=== PATIENT | male | born 1930 | race Caucasian/White ===

== ENCOUNTER 2019-02-08 12:51 | Observation (INO) | payer MEDICARE, OTHER ==
[2019-02-07 10:40] LABS: BASOPHILS # (AUTO) 0.1 X10'3 (0-0.2); BASOPHILS % (AUTO) 0.8 % (0-1); EOSINOPHILS # (AUTO) 0.2 X10'3 (0-0.9); HEMATOCRIT 37.2 % (42.0-52.0); HEMOGLOBIN 12.3 g/dl (14.0-17.9); LYMPHOCYTES # (AUTO) 1.1 X10'3 (1.1-4.8); LYMPHOCYTES % (AUTO) 18.6 % (21-51); MEAN CORPUSCULAR HEMOGLOBIN 31.8 PG (27.0-31.0); MEAN CORPUSCULAR HGB CONC 33.1 g/dL (33.0-36.5); MEAN CORPUSCULAR VOLUME 96.1 FL (78-98); MEAN PLATELET VOLUME 8.7 FL (7.4-10.4); MONOCYTES # (AUTO) 0.6 X10'3 (0-0.9); NEUTROPHILS # (AUTO) 4.1 X10'3 (1.8-7.7); NEUTROPHILS % (AUTO) 67.6 % (42-75); PLATELET COUNT 195 X10'3 (140-440); RED BLOOD COUNT 3.87 X10'6 (4.70-6.10); RED CELL DISTRIBUTION WIDTH 13.3 % (11.5-14.5); WHITE BLOOD COUNT 6.1 X10'3 (4.5-11.0)
[2019-02-07 10:51] LABS: PARTIAL THROMBOPLASTIN TIME 25 SECONDS (22-32); PROTHROMBIN TIME 10.4 SECONDS (9.0-12.0)
[2019-02-07 11:02] LABS: ALBUMIN 2.8 G/DL (3.4-5.0); ANION GAP 7 (8-16); BLOOD UREA NITROGEN 40 MG/DL (7-18); BUN/CREATININE RATIO 16.7 (5.4-32.0); CALCIUM 8.2 MG/DL (8.5-10.1); CHLORIDE 110 MMOL/L (99-107); GLUCOSE 107 MG/DL (70-104); POTASSIUM 4.1 MMOL/L (3.5-5.1); SODIUM 143 MMOL/L (135-145); TOTAL CARBON DIOXIDE 26.3 MMOL/L (24-32); eGFR 26 ML/MIN
[2019-02-08] VITALS (10 sets, daily range): BP systolic 103–144; BP diastolic 25–66
[~2019-02-08] VITALS: Ht 177.8 cm; Wt 83.5 kg
[2019-02-08] MEDS ORDERED: cefazolin/dext.iso 2gm/100ml 100 ML IV ONE (13:25)
[2019-02-08] MEDS ORDERED: ASPI-1265 PO (14:18)
[2019-02-08] MEDS ORDERED: ACET600C PO (14:18)
[2019-02-08] MEDS ORDERED: AMIO200T40 PO (14:18)
[2019-02-08] MEDS ORDERED: FURO40TA4 PO (14:18)
[2019-02-08] MEDS ORDERED: FURO-150 PO (14:18)
[2019-02-08] MEDS ORDERED: KRIL500C PO (14:18)
[2019-02-08] MEDS ORDERED: SACU1TAB PO (14:18)
[2019-02-08] MEDS ORDERED: CHOL100046 PO (14:18)
[2019-02-08] MEDS ORDERED: ROSU10TA2 PO (14:18)
[2019-02-08] MEDS ORDERED: lidocaine 1%/epinephrine 1:100,000 injection 50ml vial ONE (14:40)
[2019-02-08] MEDS ORDERED: midazolam 2 mg/2 ml injection ONE ×2 (14:40→17:22)
[2019-02-08] MEDS ORDERED: fentaNYL/PF 50MCG/1 ML 2ML syringe ONE ×2 (14:40→17:40)
[2019-02-08] MEDS ORDERED: iohexol 350MG/ML 100ml bottle IV ONE ×2 (14:41→16:57)
[2019-02-08] MEDS ORDERED: ceFAZolin 2gm in dextrose, iso 100 ML IV ONE (14:45)
[2019-02-08] MEDS ORDERED: sod bicarbonate 150mEq in D5W 1,150 ML IV ONE (14:50)
[2019-02-08] MEDS ORDERED: cefazolin/dext.iso 2gm/50ml 50 ML IV ONE (18:03)
--- NOTE | 2019-02-08 18:45 | NUR ---
Received report from CHIRAG Jhaveri from the research laboratory specialist. Patient arrived onto the floor at approx. 1900 hrs. Patient is alert and oriented and in stable condition. Will complete post operative vitals and continue to monitor for the duration of shift.
[2019-02-08] MEDS ORDERED: ondansetron/PF 4mg/2ml inj ONE (18:56)
[2019-02-08] MEDS ORDERED: vitamin D (cholecalciferol) 1,000 unit tablet PO SCH (19:50)
[2019-02-08] MEDS ORDERED: magnesium hydroxide 30ml (MOM) UD suspension PO PRN (19:50)
[2019-02-08] MEDS ORDERED: HYDROcodone/acetaminophen 10/325mg tab PO PRN (19:50)
[2019-02-08] MEDS ORDERED: ondansetron/PF 4mg/2ml inj IV PRN (19:50)
[2019-02-08] MEDS ORDERED: HYDROcodone/acetaminophen 5mg/325mg tablet PO PRN (19:50)
[2019-02-08] MEDS ORDERED: mag hydrox/Alum hydrox/simeth 30ml oral suspension PO PRN (19:50)
[2019-02-08] MEDS ORDERED: acetaminophen 325mg tablet PO PRN (19:50)
[2019-02-08] MEDS ORDERED: atorvastatin 20mg tablet PO SCH (21:00)
[2019-02-08] MEDS: aspirin 81mg tab.chew PO SCH (21:25)
[2019-02-08] MEDS: acetylcysteine 200 MG/ml 4ml vial PO SCH (22:16)
[2019-02-08] MEDS: normal saline 1000ml 1,000 ML IV SCH (22:21)
--- NOTE | 2019-02-09 00:30 | NUR ---
Accompanied patient along with tech to ED depart for Chest X-ray. Patient was stable and remained stable throughout the test and was brought back to his room. He was put back into bed with no problems. Will continue to monitor patient for duration of this shift.
--- NOTE | 2019-02-09 00:30 | NUR ---
Radiology- Patient Tony Peters in room 9266A is ready for his ordered 2-view chest x-ray, please call me in PCU when it is OK to bring the patient down. Thank you. CHIRAG Peterson [id number]
[2019-02-09 02:00] VITALS: BP 117/52
[2019-02-09 05:57] LABS: BASOPHILS % (AUTO) 0.4 % (0-1); EOSINOPHILS # (AUTO) 0.2 X10'3 (0-0.9); EOSINOPHILS % (AUTO) 2.8 % (0-6); HEMATOCRIT 31.6 % (42.0-52.0); LYMPHOCYTES # (AUTO) 1.4 X10'3 (1.1-4.8); LYMPHOCYTES % (AUTO) 16.7 % (21-51); MEAN CORPUSCULAR HEMOGLOBIN 32.7 PG (27.0-31.0); MEAN CORPUSCULAR HGB CONC 34.8 g/dL (33.0-36.5); MEAN CORPUSCULAR VOLUME 93.9 FL (78-98); MEAN PLATELET VOLUME 8.7 FL (7.4-10.4); MONOCYTES % (AUTO) 12.1 % (2-12); NEUTROPHILS # (AUTO) 5.8 X10'3 (1.8-7.7); PLATELET COUNT 176 X10'3 (140-440); RED BLOOD COUNT 3.37 X10'6 (4.70-6.10); RED CELL DISTRIBUTION WIDTH 13.6 % (11.5-14.5); WHITE BLOOD COUNT 8.5 X10'3 (4.5-11.0)
[2019-02-09 06:00] VITALS: BP 120/64
[2019-02-09 06:02] LABS: ALBUMIN 2.4 G/DL (3.4-5.0); ANION GAP 5 (8-16); BLOOD UREA NITROGEN 34 MG/DL (7-18); BUN/CREATININE RATIO 16.8 (5.4-32.0); CHLORIDE 108 MMOL/L (99-107); CREATININE 2.02 MG/DL (0.60-1.10); GLUCOSE 94 MG/DL (70-104); POTASSIUM 4.3 MMOL/L (3.5-5.1); SODIUM 143 MMOL/L (135-145); TOTAL CARBON DIOXIDE 30.2 MMOL/L (24-32); eGFR 31 ML/MIN
--- NOTE | 2019-02-09 06:11 | NUR ---
Problems reprioritized. Patient report given, questions answered & plan of care reviewed with CHIRAG Veloz.
[2019-02-09] MEDS ORDERED: CEPH-572 PO (07:08)
[2019-02-09] MEDS: aspirin 81mg tab.chew PO SCH (07:25)
[2019-02-09] MEDS: acetylcysteine 200 MG/ml 4ml vial PO SCH (07:26)
[2019-02-09] MEDS ORDERED: sacubitril/valsartan 24mg-26mg tablet PO SCH (08:00)
[2019-02-09] MEDS ORDERED: amiodarone 200mg tablet PO SCH (08:00)
[2019-02-09] MEDS ORDERED: cephalexin 500mg capsule PO SCH (08:00)
[2019-02-09] MEDS ORDERED: furosemide 40mg tablet PO SCH (08:00)
[2019-02-09] MEDS: normal saline 1000ml 1,000 ML IV SCH (10:45)
--- NOTE | 2019-02-09 10:48 | NUR ---
PROVIDED PATIENT WITH DISCHARGE INSTRUCTIONS WELL NEW PRESCRIPTION INFORMATION. PATIENT AWARE THAT HE IS RECOMMENDED TO FOLLOW UP WITH DR. CERVANTES IN 1 WEEK, AND TO LEAVE LEFT SHOULDER DRESSING ON CLEAN DRY AND INTACT UNTIL THE FOLLOW UP APPOINTMENT. PATIENT ALSO EDUCATED ON IMPORTANCE OF MAINTAINING IMMOBILIZATION TO LEFT ARM UNTIL FOLLOW UP APPOINTMENT. PATIENT SAYS HE UNDERSTANDS AND WILL WEAR HIS SLING. IV REMOVED, CATHETER INTACT, MINIMAL BLEEDING WITH CLEAN GAUZE APPLIED AND SECURED WITH TAPE. TELE MONITOR REMOVED AND RETURNED TO [employer]. PATIENT DENIED ANY FURTHER QUESTIONS OR CONCERNS. PATIENT WILL GO HOME WITH FRIEND VIA PRIVATE VEHICLE ONCE HIS MEDICATION IS DELIVERED.
[2019-02-10] MEDS ORDERED: furosemide 20MG tablet PO SCH (08:00)
== END 2019-02-09 12:12 | disposition home or self-care (01) ==
LOC: SSTAY O 12:51 → PCU 3S 19:23 → SSTAY O 20:02 → PCU 3S 22:02
PROVIDERS: ADMIT Internal Medicine Cardiovascular Disease; ATTEND Internal Medicine Cardiovascular Disease
DX: I50.22 Chronic systolic (congestive) heart failure (principal); I25.10 Atherosclerotic heart disease of native coronary artery without angina pectoris; E11.9 Type 2 diabetes mellitus without complications; E78.5 Hyperlipidemia, unspecified; I42.0 Dilated cardiomyopathy; I11.0 Hypertensive heart disease with heart failure; Z95.810 Presence of automatic (implantable) cardiac defibrillator
CPT/HCPCS: 33225; 33249; 36415; 71046; 80048; 83880; 85025; 85610; 85730; 87070; 93005; 96365; 96366; A6449; C1882; C1887; C1895; C1900; G0378; J0690; J2250; J2405; J3010; J3490; J7030; Q9967; 99152; 99153; A4565; A4620; C1769; C1894

== ENCOUNTER 2019-02-20 12:23 | Emergency (ER) | payer MEDICARE, OTHER ==
[~2019-02-20] VITALS: Ht 177.8 cm; Wt 96.0 kg
[~2019-02-20 12:23] MED LIST: ACET600C PO; AMIO200T40 PO; ASPI-1265 PO; CHOL100046 PO; FURO-150 PO; FURO40TA4 PO; KRIL500C PO; ROSU10TA2 PO; SACU1TAB PO
[2019-02-20] MEDS ORDERED: ondansetron/PF 4mg/2ml inj IV ONE (12:45)
[2019-02-20] MEDS ORDERED: morphine 4 MG/ML inj SYRINge IV ONE (12:45)
[2019-02-20 13:04] LABS: BASOPHILS % (AUTO) 0.2 % (0-1); EOSINOPHILS % (AUTO) 0 % (0-6); HEMATOCRIT 32.7 % (42.0-52.0); HEMOGLOBIN 11.2 g/dl (14.0-17.9); LYMPHOCYTES # (AUTO) 0.2 X10'3 (1.1-4.8); LYMPHOCYTES % (AUTO) 1.1 % (21-51); MEAN CORPUSCULAR HGB CONC 34.2 g/dL (33.0-36.5); MEAN CORPUSCULAR VOLUME 93.6 FL (78-98); MEAN PLATELET VOLUME 8.2 FL (7.4-10.4); MONOCYTES # (AUTO) 1.2 X10'3 (0-0.9); MONOCYTES % (AUTO) 6.9 % (2-12); NEUTROPHILS # (AUTO) 15.7 X10'3 (1.8-7.7); NEUTROPHILS % (AUTO) 91.8 % (42-75); PLATELET COUNT 141 X10'3 (140-440); RED BLOOD COUNT 3.49 X10'6 (4.70-6.10); RED CELL DISTRIBUTION WIDTH 13.5 % (11.5-14.5); WHITE BLOOD COUNT 17.1 X10'3 (4.5-11.0)
[2019-02-20 13:20] LABS: ALANINE AMINOTRANSFERASE 18 U/L (12-78); ALBUMIN 2.7 G/DL (3.4-5.0); ALBUMIN/GLOBULIN RATIO 0.9 (1.1-1.5); ALKALINE PHOSPHATASE 55 IU/L (46-116); ANION GAP 8 (8-16); ASPARTATE AMINO TRANSFERASE 17 U/L (10-37); BILIRUBIN,TOTAL 0.6 MG/DL (0.1-1.0); BLOOD UREA NITROGEN 29 MG/DL (7-18); BUN/CREATININE RATIO 12.8 (5.4-32.0); CALCIUM 8.1 MG/DL (8.5-10.1); CHLORIDE 106 MMOL/L (99-107); CREATININE 2.26 MG/DL (0.60-1.10); GLUCOSE 144 MG/DL (70-104); POTASSIUM 4.2 MMOL/L (3.5-5.1); SODIUM 141 MMOL/L (135-145); TOTAL CARBON DIOXIDE 26.8 MMOL/L (24-32); TOTAL PROTEIN 5.6 G/DL (6.4-8.2); eGFR 28 ML/MIN
[2019-02-20 13:28] LABS: MAGNESIUM 1.9 MG/DL (1.5-2.4)
[2019-02-20 13:31] LABS: TOTAL CELLS COUNTED 100
[2019-02-20 13:32] LABS: PLATELET ESTIMATE NORMAL
[2019-02-20 13:43] VITALS: BP 106/45
[2019-02-20 14:58] LABS: INR 1.1 INR; PARTIAL THROMBOPLASTIN TIME 25 SECONDS (22-32); PROTHROMBIN TIME 10.7 SECONDS (9.0-12.0)
== END 2019-02-20 15:41 | disposition home or self-care (01) ==
LOC: ER 12:23
DX: S30.1XXA Contusion of abdominal wall, initial encounter (principal); S20.212A Contusion of left front wall of thorax, initial encounter; S20.211A Contusion of right front wall of thorax, initial encounter; Z95.0 Presence of cardiac pacemaker; D53.9 Nutritional anemia, unspecified; D72.829 Elevated white blood cell count, unspecified; I71.4 Abdominal aortic aneurysm, without rupture; N18.4 Chronic kidney disease, stage 4 (severe); Z79.82 Long term (current) use of aspirin; W18.2XXA Fall in (into) shower or empty bathtub, initial encounter; Y93.89 Activity, other specified; Y92.89 Other specified places as the place of occurrence of the external cause; Y99.8 Other external cause status
CPT/HCPCS: 36415; 71045; 71250; 74176; 80053; 83605; 83735; 83880; 84145; 84484; 85025; 85610; 85730; 86885; 86900; 86901; 87040; 93005; 96374; 96375; 99284; J2270; J2405

== ENCOUNTER 2019-02-21 10:11 | Inpatient (IN) | payer MEDICARE, OTHER ==
[~2019-02-21] VITALS: Ht 177.8 cm; Wt 93.1 kg
[2019-02-21 10:49] LABS: BASOPHILS % (AUTO) 0.4 % (0-1); EOSINOPHILS % (AUTO) 0 % (0-6); HEMATOCRIT 31.6 % (42.0-52.0); HEMOGLOBIN 10.6 g/dl (14.0-17.9); LYMPHOCYTES # (AUTO) 0.2 X10'3 (1.1-4.8); LYMPHOCYTES % (AUTO) 1.4 % (21-51); MEAN CORPUSCULAR HEMOGLOBIN 31.9 PG (27.0-31.0); MEAN CORPUSCULAR HGB CONC 33.7 g/dL (33.0-36.5); MEAN CORPUSCULAR VOLUME 94.7 FL (78-98); MEAN PLATELET VOLUME 8.4 FL (7.4-10.4); MONOCYTES # (AUTO) 0.4 X10'3 (0-0.9); MONOCYTES % (AUTO) 3.2 % (2-12); NEUTROPHILS # (AUTO) 10.7 X10'3 (1.8-7.7); PLATELET COUNT 109 X10'3 (140-440); RED BLOOD COUNT 3.34 X10'6 (4.70-6.10); RED CELL DISTRIBUTION WIDTH 13.5 % (11.5-14.5); WHITE BLOOD COUNT 11.2 X10'3 (4.5-11.0)
[2019-02-21 11:09] LABS: ALANINE AMINOTRANSFERASE 15 U/L (12-78); ALBUMIN 2.6 G/DL (3.4-5.0); ALBUMIN/GLOBULIN RATIO 0.8 (1.1-1.5); ALKALINE PHOSPHATASE 50 IU/L (46-116); ANION GAP 8 (8-16); ASPARTATE AMINO TRANSFERASE 23 U/L (10-37); BILIRUBIN,TOTAL 0.6 MG/DL (0.1-1.0); BLOOD UREA NITROGEN 42 MG/DL (7-18); CALCIUM 8.3 MG/DL (8.5-10.1); CHLORIDE 108 MMOL/L (99-107); CREATININE 3.23 MG/DL (0.60-1.10); GLUCOSE 157 MG/DL (70-104); POTASSIUM 4.7 MMOL/L (3.5-5.1); SODIUM 141 MMOL/L (135-145); TOTAL CARBON DIOXIDE 24.8 MMOL/L (24-32); TOTAL PROTEIN 5.9 G/DL (6.4-8.2); eGFR 18 ML/MIN
--- NOTE | 2019-02-21 12:20 | NUR ---
Spoke with intensive care anaesthetist Gokul and updated to plan of care.
[2019-02-21] MEDS ORDERED: acetaminophen 325mg tablet PO STA (12:41)
[2019-02-21 12:59] LABS: INR 1.1 INR; PARTIAL THROMBOPLASTIN TIME 29 SECONDS (22-32)
[2019-02-21 13:21] LABS: CLARITY,URINE SLIGHTLY CLOUDY (Clear); COLOR,URINE YELLOW (Yellow); GLUCOSE, URINE NEGATIVE (Neg); KETONES,URINE TRACE mg/dl (Neg); LEUKOCYTE ESTERASE ,URINE NEGATIVE (Neg); NITRITES, URINE NEGATIVE (Neg); OCCULT BLOOD,URINE SMALL (Neg); PROTEIN,URINE 100 mg/dl (Neg)
[2019-02-21 13:22] LABS: UA COLLECTION TYPE STRAIGHT CATH
[2019-02-21] MEDS ORDERED: CefTRIAXone/D5W-Rocephin 1gm 50 ML IV ONE (13:25)
[2019-02-21 13:37] LABS: ABG BASE EXCESS -0.7 mmol/L (-2.0-3.0); ABG HCO3 21.8 mmol/L (22.0-26.0); ABG OXYGEN SATURATION 94.8 % (95-98); ABG PCO2 (T) 28.8 mmHg (35.0-48.0); ABG PH (T) 7.496 (7.350-7.450); ABG PO2 (T) 77.6 mmHg (83-108); ALLEN'S TEST Positive; FCOHb 0.3 % (0.5-1.5); FLOW 2 L/min; FMetHb 0.3 % (0.3-1.12); FO2Hb 94.2 % (94-100); RESPIRATORY RATE (OBSERVED) 18 b/min; TOTAL HEMOGLOBIN 10.5 G/dl (14.0-18.0)
[2019-02-21 13:41] LABS: BACTERIA,URINE FEW /HPF (Neg)
[2019-02-21 13:42] LABS: SQUAMOUS EPITHELIAL CELL,UR FEW /LPF (FEW)
[2019-02-21 13:50] LABS: AMORPHOUS URATES 1+
[2019-02-21] MEDS ORDERED: aspirin 325mg tablet PO ONE (13:50)
[2019-02-21 13:51] LABS: RBC,URINE 0-2 /HPF (0-2); WBC,URINE 0-4 /HPF (0-4)
[2019-02-21] MEDS: normal saline 1000ml 1,000 ML IV SCH (15:28)
[2019-02-21] MEDS ORDERED: mag hydrox/Alum hydrox/simeth 30ml oral suspension PO PRN (15:30)
[2019-02-21] MEDS ORDERED: potassium Cl 20 mEq SR tablet PO PRN ×2 (15:30)
[2019-02-21] MEDS ORDERED: potassium Cl 40MEQ/NS 500ml 500 ML IV PRN ×2 (15:30)
[2019-02-21] MEDS ORDERED: magnesium 2GM in 50ml NS 50 ML IV PRN (15:30)
[2019-02-21] MEDS: levoFLOXACIN-Levaquin 250mg/D5 50 ML IV SCH (15:30)
[2019-02-21] MEDS ORDERED: magnesium 4gm in 100ml NS 100 ML IV PRN (15:30)
[2019-02-21] MEDS: K and/or MAG REPLACEMENT MC SCH (15:30)
[2019-02-21] MEDS ORDERED: magnesium Cl slow-release 64mg tablet PO PRN (15:30)
[2019-02-21] MEDS ORDERED: acetaminophen 325mg tablet PO PRN (15:30)
--- NOTE | 2019-02-21 15:43 | NUR ---
Call to Pt. adult caregiver Gokul pollock inform of impending admission. Asked if he could bring in medication to confirm does.
[2019-02-21] MEDS ORDERED: furosemide 20 MG/2 ML vial IV ONE (16:50)
[2019-02-21] MEDS: cefepime 1GM/NS ADD-VANTAGE 100 ML IV SCH (16:57)
[2019-02-21] MEDS: DOBUTamine-DoBUTrex 500mg/D5W 250 ML IV SCH (17:34)
--- NOTE | 2019-02-21 17:38 | NUR ---
Pt arrived from ER. TEARER placed an 18g IV in pt right forearm. Pt VS obtained and pt placed on Mobile.
[2019-02-21 17:44] VITALS: BP 113/63
[2019-02-21 18:00] VITALS: BP 139/68
--- NOTE | 2019-02-21 18:05 | NUR ---
PAGER ID: [phone] MESSAGE: kristi Senior in [id number] has a 6 hour trop of 0.98. Art, [phone]
--- NOTE | 2019-02-21 18:32 | NUR ---
Problems reprioritized. Patient report given, questions answered & plan of care reviewed with CHIRAG Recinos.
--- NOTE | 2019-02-21 18:34 | NUR ---
Patient in room PCU 3015. I have received report from Art RN and had the opportunity to ask questions and assume patient care. Pt currently lying in bed. Says he doesn't feel so great. Currently has dobutamine running at 3mcg/kg. No complaints at this time.
--- NOTE | 2019-02-21 18:34 | NUR ---
Patient in room PCU 3015. I have received report from ART and had the opportunity to ask questions and assume patient care.
[2019-02-21 19:00] VITALS: BP 109/46
--- NOTE | 2019-02-21 19:14 | NUR ---
Dr. Blanca rounded on the pt. No new orders. Advised that placement of a pacemaker can also cause increased trops, although it's been more than 10 days.
[2019-02-21] MEDS: aspirin 81mg tab.chew PO SCH (20:02)
[2019-02-21] MEDS: heparin, porcine 5000 units/ml vial SQ SCH (20:08)
[2019-02-21 22:00] VITALS: BP 107/45
[2019-02-21 23:00] VITALS: BP 107/44
[2019-02-22] VITALS (12 sets, daily range): BP systolic 87–140; BP diastolic 43–104
--- NOTE | 2019-02-22 00:51 | NUR ---
Page Sent promotional table spacer PAGER ID: [phone] MESSAGE: Tony Peters 3015-B possible HCAP and recent PPM placement. blood cultures came yari positive. Jung JESUSU [id number]
--- NOTE | 2019-02-22 01:01 | NUR ---
Spoke with Dr. Sevilla regarding positive blood cultures. Due to decreased kidney function BUN 42 EYEGLASS LENS GENERATOR 3.23, he will DC IV lasix. Current ABx will also be DCd. to put pt on IV Vancomycin for gram + cocci in clusters. Addendum: 02/22/19 at 0356 by Grisel Sepulveda RN CORRECTION; current ABx kept, and Vanco was added
[2019-02-22] MEDS: normal saline 1000ml 1,000 ML IV SCH ×3 (01:06→19:50)
[2019-02-22 01:30] LABS: BASOPHILS % (AUTO) 0.3 % (0-1); EOSINOPHILS % (AUTO) 0 % (0-6); HEMATOCRIT 28.8 % (42.0-52.0); HEMOGLOBIN 9.6 g/dl (14.0-17.9); LYMPHOCYTES # (AUTO) 0.2 X10'3 (1.1-4.8); LYMPHOCYTES % (AUTO) 1.8 % (21-51); MEAN CORPUSCULAR HEMOGLOBIN 32.1 PG (27.0-31.0); MEAN CORPUSCULAR HGB CONC 33.4 g/dL (33.0-36.5); MONOCYTES # (AUTO) 0.3 X10'3 (0-0.9); MONOCYTES % (AUTO) 3.5 % (2-12); NEUTROPHILS # (AUTO) 9.4 X10'3 (1.8-7.7); NEUTROPHILS % (AUTO) 94.4 % (42-75); PLATELET COUNT 77 X10'3 (140-440); RED CELL DISTRIBUTION WIDTH 13.5 % (11.5-14.5)
[2019-02-22 01:38] LABS: ALANINE AMINOTRANSFERASE 23 U/L (12-78); ALBUMIN 2.1 G/DL (3.4-5.0); ALBUMIN/GLOBULIN RATIO 0.7 (1.1-1.5); ALKALINE PHOSPHATASE 37 IU/L (46-116); ANION GAP 8 (8-16); ASPARTATE AMINO TRANSFERASE 43 U/L (10-37); BILIRUBIN,TOTAL 0.4 MG/DL (0.1-1.0); BLOOD UREA NITROGEN 49 MG/DL (7-18); BUN/CREATININE RATIO 13.8 (5.4-32.0); CALCIUM 7.7 MG/DL (8.5-10.1); CHLORIDE 109 MMOL/L (99-107); CREATININE 3.54 MG/DL (0.60-1.10); GLUCOSE 152 MG/DL (70-104); POTASSIUM 4.6 MMOL/L (3.5-5.1); SODIUM 141 MMOL/L (135-145); TOTAL CARBON DIOXIDE 23.6 MMOL/L (24-32); TOTAL PROTEIN 5.1 G/DL (6.4-8.2); eGFR 16 ML/MIN
--- NOTE | 2019-02-22 01:51 | NUR ---
Page Sent promotional table spacer PAGER ID: [phone] MESSAGE: Tony Peters 3015-B 12hr Trop 1.87. Jung [phone]
[2019-02-22] MEDS ORDERED: VANCOMYCIN IV ONE (02:00)
[2019-02-22] MEDS ORDERED: SODIUM CHLORIDE IV ONE (02:00)
[2019-02-22 02:14] LABS: PLATELET ESTIMATE DECREASED; TOTAL CELLS COUNTED 100
--- NOTE | 2019-02-22 02:57 | NUR ---
Dr. Sevilla returned my page from the critical trop of 1.87. He ordered another 6 hour trop and a 12 lead EKG
--- NOTE | 2019-02-22 03:26 | NUR ---
Page Sent promotional table spacer PAGER ID: [phone] MESSAGE: Tony Peters 3015-B EKG still shows AV paced rhythm. No acute changes. patient was shivering. had temp of 99.6 Jerren 6214
--- NOTE | 2019-02-22 03:30 | NUR ---
Dr. Sevilla is aware of the patient's chills and EKG results. He ordered a heparin drip.
[2019-02-22] MEDS ORDERED: heparin 25,000 UNIT/250ml bag 250 ML IV SCH (03:37)
[2019-02-22] MEDS ORDERED: heparin 10,000 units/1 ML INJ IV ONE (03:40)
[2019-02-22] MEDS ORDERED: heparin 10,000 units/1 ML INJ IV PRN (03:40)
[2019-02-22] MEDS: HYDROcodone/acetaminophen 5mg/325mg tablet PO PRN ×2 (04:25→11:43)
--- NOTE | 2019-02-22 06:10 | NUR ---
Problems reprioritized. Patient report given, questions answered & plan of care reviewed with Darling. Patient stable and sleeping during report.
--- NOTE | 2019-02-22 06:13 | NUR ---
Patient in room PCU 3015. I have received report from Sridevi RN & CHIRAG Feng and had the opportunity to ask questions and assume patient care.
--- NOTE | 2019-02-22 06:31 | NUR ---
Problems reprioritized. Patient report given, questions answered & plan of care reviewed with Darling BEARD. NEVILLE NICHOLAS documentation: I have reviewed and agree with all interventions, assessments performed and documented by FRANKY NICHOLAS Medication Administration: For this medication-pass time frame, all medication were reviewed, dispensed, administered and documented per hospital policy by FRANKY BEARD.
--- NOTE | 2019-02-22 07:37 | NUR ---
Paged Dr. Gannon re critical value. PAGER ID: [phone] MESSAGE: Pt. oTny Peters in 8366L single trop at 2.49. Thanks! Darling BEARD [phone] Addendum: 02/22/19 at 0738 by Malu Escobar RN Lisa Palomino notified.
[2019-02-22] MEDS ORDERED: sacubitril/valsartan 24mg-26mg tablet PO SCH (08:00)
[2019-02-22] MEDS ORDERED: furosemide 20 MG/2 ML vial IV SCH (08:00)
[2019-02-22] MEDS: K and/or MAG REPLACEMENT MC SCH (08:00)
[2019-02-22] MEDS: heparin, porcine 5000 units/ml vial SQ SCH ×2 (08:00→19:17)
[2019-02-22] MEDS ORDERED: vancomycin inj 1,250 MG in NS 250ml IV soln IV PRN (08:15)
[2019-02-22] MEDS: cefepime 1GM/NS ADD-VANTAGE 100 ML IV SCH (08:19)
[2019-02-22] MEDS: amiodarone 200mg tablet PO SCH (08:22)
[2019-02-22] MEDS: aspirin 81mg tab.chew PO SCH ×2 (08:22→19:23)
[2019-02-22] MEDS: levoFLOXACIN-Levaquin 250mg/D5 50 ML IV SCH (09:12)
[2019-02-22] MEDS: ondansetron/PF 4mg/2ml inj IV PRN ×2 (11:43→19:43)
--- NOTE | 2019-02-22 12:13 | NUR ---
Paged Dr. Gannon re critical PTT. PAGER ID: [phone] MESSAGE: Hugo Peters in 3012P critical PTT of 133. Heparin gtt turned off. Thanks! Darling BEARD [phone] Addendum: 02/22/19 at 1238 by Malu Escobar RN Dr. Gannon at bedside, Dr. Cruz consulted. Orders received to D/C heparing gtt.
--- NOTE | 2019-02-22 14:04 | NUR ---
Paged Dr. Jagdeep bueno pt's B/P trending down past 3 hours. PAGER ID: [phone] MESSAGE: Pt Tony Peters in 4629A. B/P trending down since 1200: 97/46, 92 & . Thanks! Darling BEARD [phone] Addendum: 02/22/19 at 1407 by Malu Escobar RN Dr. Gannon phoned back, order received to increase dobutamine gtt to 5 mcg/kg.
--- NOTE | 2019-02-22 17:36 | NUR ---
Paged Dr. Gannon re rapid response. PAGER ID: [phone] MESSAGE: Pt Tony Peters in 1989X. Rapid response called, pt is in v-tach at 123bpm. Thanks! Darling BEARD [phone]
--- NOTE | 2019-02-22 17:40 | NUR ---
Dr. Cruz paged per Dr. Morel's request. Addendum: 02/22/19 at 1803 by Malu Escobar RN Dr. Cruz at bedside. New orders received.
[2019-02-22] MEDS ORDERED: magnesium 2GM in 50ml NS 50 ML IV ONE (18:00)
[2019-02-22] MEDS ORDERED: amiodarone 150mg/dext, iso-os 100 ML IV ONE (18:00)
--- NOTE | 2019-02-22 18:00 | NUR ---
Patient in room PCU 3015. I have received report from Darling BEARD and had the opportunity to ask questions and assume patient care. Post rapid response. Pt had gone into sustained Vtach with HR in the 120s. family at the bed side. Dr. Cruz consulted and gave new orders for Mag and Amio x1 dose (loading only). He'd like the pt's pacemaker to be interrogated tomorrow. ID also saw the pt today. Suspects infection in the pacemaker. Rpt blood cultures ordered by day hospitalist with AM labs
--- NOTE | 2019-02-22 18:20 | NUR ---
Problems reprioritized. Patient report given, questions answered & plan of care reviewed with CHIRAG Laureano.
--- NOTE | 2019-02-22 18:49 | NUR ---
Patient in room PCU 3015. I have received report from Darling and had the opportunity to ask questions and assume patient care.
--- NOTE | 2019-02-22 19:18 | NUR ---
Plt count dropped from 109 to 77. held heparin
[2019-02-22] MEDS: DOBUTamine-DoBUTrex 500mg/D5W 250 ML IV SCH (22:38)
[2019-02-23] VITALS (7 sets, daily range): BP systolic 97–136; BP diastolic 53–94
[2019-02-23] MEDS: normal saline 1000ml 1,000 ML IV SCH ×3 (02:55→17:08)
[2019-02-23] MEDS: VANCOMYCIN LEVEL IV SCH (03:00)
--- NOTE | 2019-02-23 03:21 | NUR ---
PAGER ID: [phone] MESSAGE: FRANKY pt Tony Peters in [id number] had a 5 min sustained episode of accelerated ideoventricular rhythm. HR up to 130s. Had an episode today that lasted 15mins with rapid response. Pt N/V Nancy already consulted today. Grisel Cornejo Addendum: 02/23/19 at 0345 by Grisel Sepulveda RN Dr. Sevilla aware of event. Has given orders for an AMIODARONE gtt to be started if pt has another episode.
[2019-02-23] MEDS: ondansetron/PF 4mg/2ml inj IV PRN ×2 (03:24→14:45)
--- NOTE | 2019-02-23 06:22 | NUR ---
PAGER ID: [phone] MESSAGE: Tony Bennett in 3123B had another event of accelerated idioventricular rhythm. N/V. Not sustained this time. Report already given to day shift RN. Recinos [phone]
--- NOTE | 2019-02-23 06:29 | NUR ---
Patient in room PCU 3015. I have received report from Grisel BEARD and had the opportunity to ask questions and assume patient care. Dobutamine running at 5 mcg/kg/min, pt is on bedside mobile, blood pressure is within normal limits at this time. Pt is complaining of nausea and vomiting, Grisel BEARD notified night time hospitalist during report. Will continue to monitor.
--- NOTE | 2019-02-23 06:35 | NUR ---
Problems reprioritized. Patient report given, questions answered & plan of care reviewed with IAN.
--- NOTE | 2019-02-23 06:36 | NUR ---
Problems reprioritized. Patient report given, questions answered & plan of care reviewed with Jasmin BEARD . NEW GRAD documentation: I have reviewed and agree with all interventions, assessments performed and documented by FRANKY BEARD. NEW GRAD Medication Administration: For this medication-pass time frame, all medication were reviewed, dispensed, administered and documented per hospital policy by FRANKY BEARD.
[2019-02-23 07:05] LABS: BASOPHILS % (AUTO) 0.3 % (0-1); EOSINOPHILS % (AUTO) 0.5 % (0-6); HEMOGLOBIN 9.7 g/dl (14.0-17.9); LYMPHOCYTES # (AUTO) 0.3 X10'3 (1.1-4.8); LYMPHOCYTES % (AUTO) 4.9 % (21-51); MEAN CORPUSCULAR HEMOGLOBIN 31.4 PG (27.0-31.0); MEAN CORPUSCULAR HGB CONC 33.3 g/dL (33.0-36.5); MEAN CORPUSCULAR VOLUME 94.3 FL (78-98); MEAN PLATELET VOLUME 10.3 FL (7.4-10.4); MONOCYTES # (AUTO) 0.5 X10'3 (0-0.9); MONOCYTES % (AUTO) 6.9 % (2-12); NEUTROPHILS # (AUTO) 5.9 X10'3 (1.8-7.7); NEUTROPHILS % (AUTO) 87.4 % (42-75); PLATELET COUNT 64 X10'3 (140-440); RED BLOOD COUNT 3.08 X10'6 (4.70-6.10); WHITE BLOOD COUNT 6.7 X10'3 (4.5-11.0)
[2019-02-23] MEDS: aspirin 81mg tab.chew PO SCH ×2 (07:26→20:10)
[2019-02-23] MEDS: amiodarone 200mg tablet PO SCH (07:26)
[2019-02-23 07:28] LABS: ALANINE AMINOTRANSFERASE 19 U/L (12-78); ALBUMIN 1.9 G/DL (3.4-5.0); ALBUMIN/GLOBULIN RATIO 0.6 (1.1-1.5); ALKALINE PHOSPHATASE 38 IU/L (46-116); ANION GAP 11 (8-16); ASPARTATE AMINO TRANSFERASE 43 U/L (10-37); BILIRUBIN,TOTAL 0.4 MG/DL (0.1-1.0); BLOOD UREA NITROGEN 63 MG/DL (7-18); BUN/CREATININE RATIO 15.9 (5.4-32.0); CALCIUM 7.8 MG/DL (8.5-10.1); CHLORIDE 110 MMOL/L (99-107); CREATININE 3.97 MG/DL (0.60-1.10); GLUCOSE 118 MG/DL (70-104); MAGNESIUM 2.6 MG/DL (1.5-2.4); PHOSPHORUS 3.8 MG/DL (2.3-4.5); POTASSIUM 4.7 MMOL/L (3.5-5.1); SODIUM 142 MMOL/L (135-145); TOTAL CARBON DIOXIDE 21.1 MMOL/L (24-32); VANCOMYCIN,RANDOM 11.4 UG/ML; eGFR 14 ML/MIN
[2019-02-23] MEDS ORDERED: vancomycin inj 1,250 MG in NS 250ml IV soln IV ONE (07:50)
[2019-02-23] MEDS: heparin, porcine 5000 units/ml vial SQ SCH ×2 (08:00→20:00)
[2019-02-23] MEDS: K and/or MAG REPLACEMENT MC SCH (08:00)
--- NOTE | 2019-02-23 08:45 | NUR ---
promotional table spacer PAGER ID: [phone] MESSAGE: [id number] LorraineTony Patient has positive blood cultures with MRSA. Thank you, Jasmin #[phone]
[2019-02-23 09:01] LABS: TROPONIN I 0.94 NG/ML (0.0-0.05)
--- NOTE | 2019-02-23 09:02 | NUR ---
Spoke with Lisa Palomino METAL HANDLER in regards to patient's critical troponin of 0.94, which is down from 2.49 that was drawn 01/22/19. No new orders at this time. Pt denies chest pain and SOB. Will continue to monitor.
[2019-02-23] MEDS ORDERED: MIDAZolam 5mg/ml 2ml vial IV STA (09:11)
[2019-02-23] MEDS ORDERED: morphine 10mg/ml inj. IV STA (09:11)
[2019-02-23] MEDS ORDERED: MIDAZolam 1mg/ml 10ml vial IV STA (09:18)
--- NOTE | 2019-02-23 11:40 | NUR ---
PAGER ID: [phone] MESSAGE: [id number] Tony Peters Pt's pacemaker interrogated and revealed A-fib with RVR. Heart rate is now 92 with occasional increases up to 114, BP now is 96/52 and trending down. Please call, Jasmin #[phone]
[2019-02-23] MEDS: HYDROcodone/acetaminophen 5mg/325mg tablet PO PRN ×2 (14:45→21:17)
[2019-02-23] MEDS: DOBUTamine-DoBUTrex 500mg/D5W 250 ML IV SCH (17:08)
--- NOTE | 2019-02-23 18:37 | NUR ---
Problems reprioritized. Patient report given, questions answered & plan of care reviewed with Rafael RN and Jason RN.
[2019-02-23] MEDS: NYSTATIN CREAM - 30GM TUBE TP SCH (20:00)
[2019-02-23] MEDS: lactobacillus rhamnosus 10,000 MMU CELLS/CAPSULE PO SCH (20:10)
[2019-02-23] MEDS: magnesium hydroxide 30ml (MOM) UD suspension PO PRN ×2 (22:43→22:48)
[2019-02-24] VITALS (14 sets, daily range): BP systolic 99–132; BP diastolic 52–80
[2019-02-24] MEDS: normal saline 1000ml 1,000 ML IV SCH ×3 (02:55→12:33)
[2019-02-24] MEDS: VANCOMYCIN LEVEL IV SCH (03:00)
[2019-02-24 05:56] LABS: BASOPHILS % (AUTO) 0.4 % (0-1); EOSINOPHILS % (AUTO) 0.2 % (0-6); HEMATOCRIT 28.6 % (42.0-52.0); HEMOGLOBIN 9.9 g/dl (14.0-17.9); LYMPHOCYTES # (AUTO) 0.3 X10'3 (1.1-4.8); LYMPHOCYTES % (AUTO) 4.5 % (21-51); MEAN CORPUSCULAR HEMOGLOBIN 32.6 PG (27.0-31.0); MEAN CORPUSCULAR HGB CONC 34.7 g/dL (33.0-36.5); MEAN CORPUSCULAR VOLUME 94.1 FL (78-98); MEAN PLATELET VOLUME 10.8 FL (7.4-10.4); MONOCYTES # (AUTO) 0.5 X10'3 (0-0.9); MONOCYTES % (AUTO) 6.6 % (2-12); NEUTROPHILS # (AUTO) 6.8 X10'3 (1.8-7.7); NEUTROPHILS % (AUTO) 88.3 % (42-75); PLATELET COUNT 62 X10'3 (140-440); RED BLOOD COUNT 3.03 X10'6 (4.70-6.10); WHITE BLOOD COUNT 7.7 X10'3 (4.5-11.0)
[2019-02-24 06:11] LABS: ALANINE AMINOTRANSFERASE 25 U/L (12-78); ALBUMIN 1.9 G/DL (3.4-5.0); ALBUMIN/GLOBULIN RATIO 0.6 (1.1-1.5); ALKALINE PHOSPHATASE 38 IU/L (46-116); ANION GAP 10 (8-16); ASPARTATE AMINO TRANSFERASE 37 U/L (10-37); BILIRUBIN,TOTAL 0.4 MG/DL (0.1-1.0); BLOOD UREA NITROGEN 65 MG/DL (7-18); BUN/CREATININE RATIO 15.2 (5.4-32.0); CALCIUM 7.6 MG/DL (8.5-10.1); CHLORIDE 111 MMOL/L (99-107); CREATININE 4.29 MG/DL (0.60-1.10); GLUCOSE 129 MG/DL (70-104); MAGNESIUM 2.6 MG/DL (1.5-2.4); PHOSPHORUS 3.5 MG/DL (2.3-4.5); POTASSIUM 4.7 MMOL/L (3.5-5.1); SODIUM 142 MMOL/L (135-145); TOTAL CARBON DIOXIDE 21.5 MMOL/L (24-32); TOTAL PROTEIN 4.9 G/DL (6.4-8.2); VANCOMYCIN,RANDOM 18.8 UG/ML; eGFR 13 ML/MIN
--- NOTE | 2019-02-24 06:31 | NUR ---
Patient in room PCU 3015. I have received report from Rafael BEARD and had the opportunity to ask questions and assume patient care. NS running at 125 mL/hr and Dobutamine running at 5 mcg/kg/min. Pt is alert and oriented X 4 in no apparent distress, will continue to monitor.
[2019-02-24 06:49] LABS: LARGE PLATELETS FEW; PLATELET ESTIMATE DECREASED
[2019-02-24] MEDS: NYSTATIN CREAM - 30GM TUBE TP SCH ×2 (08:00→20:06)
[2019-02-24] MEDS: K and/or MAG REPLACEMENT MC SCH (08:00)
[2019-02-24] MEDS: heparin, porcine 5000 units/ml vial SQ SCH ×2 (08:00→20:06)
[2019-02-24] MEDS: aspirin 81mg tab.chew PO SCH ×2 (08:05→20:04)
[2019-02-24] MEDS: lactobacillus rhamnosus 10,000 MMU CELLS/CAPSULE PO SCH ×2 (08:05→20:05)
[2019-02-24] MEDS: amiodarone 200mg tablet PO SCH (08:05)
[2019-02-24] MEDS: HYDROcodone/acetaminophen 5mg/325mg tablet PO PRN ×2 (08:06→20:05)
--- NOTE | 2019-02-24 08:46 | NUR ---
PAGER ID: [phone] MESSAGE: [id number] LorraineTony swan Kel held due to low platelet count of 62,000. SCD's on pt. Thank you Jasmin #[phone]
--- NOTE | 2019-02-24 10:10 | NUR ---
PAGER ID: [phone] MESSAGE: [id number] YUNIEL. HAS +BC X 2 - GRAM+ COCCI IN CLUSTERS. PT ON DOMINIC. MARIAELENA KING Addendum: 02/24/19 at 1010 by Mariaelena Jimenez RN Amended: Links added.
[2019-02-24] MEDS: DOBUTamine-DoBUTrex 500mg/D5W 250 ML IV SCH (14:24)
--- NOTE | 2019-02-24 14:59 | NUR ---
PAGER ID: [phone] MESSAGE: [id number] Tony Peters Patient's mag level is high at 2.6. Pt stated has not had BM in 4 days, milk of mag given last night with no success, please call Jasmin #[phone]
[2019-02-24] MEDS ORDERED: bisacodyl 10mg suppository rectal RC PRN (16:40)
[2019-02-24] MEDS ORDERED: bisacodyl 10mg suppository rectal RC STA (16:40)
--- NOTE | 2019-02-24 18:45 | NUR ---
Problems reprioritized. Patient report given, questions answered & plan of care reviewed with Stephany BEARD.
[2019-02-24] MEDS: docusate sod 100mg capsule PO SCH (20:05)
[2019-02-24] MEDS: temazepam 15mg capsule PO PRN (20:05)
[2019-02-24] MEDS: ondansetron/PF 4mg/2ml inj IV PRN (20:06)
[2019-02-25] VITALS (14 sets, daily range): BP systolic 102–121; BP diastolic 54–75
[2019-02-25] MEDS: HYDROcodone/acetaminophen 5mg/325mg tablet PO PRN ×2 (00:24→05:29)
[2019-02-25] MEDS: VANCOMYCIN LEVEL IV SCH (03:14)
[2019-02-25 06:21] LABS: BASOPHILS % (AUTO) 0.1 % (0-1); EOSINOPHILS # (AUTO) 0.1 X10'3 (0-0.9); EOSINOPHILS % (AUTO) 1.1 % (0-6); HEMATOCRIT 28.9 % (42.0-52.0); HEMOGLOBIN 10.2 g/dl (14.0-17.9); LYMPHOCYTES # (AUTO) 0.7 X10'3 (1.1-4.8); LYMPHOCYTES % (AUTO) 7.3 % (21-51); MEAN CORPUSCULAR HGB CONC 35.1 g/dL (33.0-36.5); MEAN PLATELET VOLUME 10.3 FL (7.4-10.4); MONOCYTES # (AUTO) 0.7 X10'3 (0-0.9); MONOCYTES % (AUTO) 7.4 % (2-12); NEUTROPHILS # (AUTO) 7.5 X10'3 (1.8-7.7); NEUTROPHILS % (AUTO) 84.1 % (42-75); PLATELET COUNT 73 X10'3 (140-440); RED BLOOD COUNT 3.08 X10'6 (4.70-6.10); RED CELL DISTRIBUTION WIDTH 14.1 % (11.5-14.5)
[2019-02-25 06:39] LABS: ALANINE AMINOTRANSFERASE 28 U/L (12-78); ALBUMIN/GLOBULIN RATIO 0.6 (1.1-1.5); ALKALINE PHOSPHATASE 51 IU/L (46-116); ANION GAP 10 (8-16); ASPARTATE AMINO TRANSFERASE 36 U/L (10-37); BILIRUBIN,TOTAL 0.4 MG/DL (0.1-1.0); BLOOD UREA NITROGEN 71 MG/DL (7-18); BUN/CREATININE RATIO 15.8 (5.4-32.0); CHLORIDE 111 MMOL/L (99-107); CREATININE 4.49 MG/DL (0.60-1.10); GLUCOSE 96 MG/DL (70-104); MAGNESIUM 2.7 MG/DL (1.5-2.4); PHOSPHORUS 3.1 MG/DL (2.3-4.5); POTASSIUM 4.4 MMOL/L (3.5-5.1); SODIUM 143 MMOL/L (135-145); TOTAL CARBON DIOXIDE 22.4 MMOL/L (24-32); TOTAL PROTEIN 5.1 G/DL (6.4-8.2); VANCOMYCIN,RANDOM 16.9 UG/ML; eGFR 13 ML/MIN
--- NOTE | 2019-02-25 06:47 | NUR ---
Patient in room PCU 3015. I have received report from Stephany BEARD and had the opportunity to ask questions and assume patient care. Pt is alert and oriented X4, Dobutamine running at 5 mcg/kg/min, NS running at 50 mL/hr, and pt is on Mobile #66. Pt is in no apparent distress, will continue to monitor.
[2019-02-25] MEDS: K and/or MAG REPLACEMENT MC SCH (08:00)
[2019-02-25] MEDS: heparin, porcine 5000 units/ml vial SQ SCH ×2 (08:00→20:00)
[2019-02-25] MEDS: aspirin 81mg tab.chew PO SCH ×2 (08:59→21:24)
[2019-02-25] MEDS: NYSTATIN CREAM - 30GM TUBE TP SCH ×2 (08:59→20:00)
[2019-02-25] MEDS: docusate sod 100mg capsule PO SCH ×2 (08:59→21:24)
[2019-02-25] MEDS: normal saline 1000ml 1,000 ML IV SCH (08:59)
[2019-02-25] MEDS: lactobacillus rhamnosus 10,000 MMU CELLS/CAPSULE PO SCH ×2 (08:59→21:24)
[2019-02-25] MEDS: amiodarone 200mg tablet PO SCH (08:59)
--- NOTE | 2019-02-25 09:58 | NUR ---
PAGER ID: [phone] MESSAGE: [id number] Tony Peters Pt's blood pressure 108/49 (63), pt is weaker, not sure if it is due to [place] pt rec last night. Please call Jasmin#[phone]
--- NOTE | 2019-02-25 11:00 | NUR ---
Asked Dr. Silva if he would like to continue NS at 50 mL/hr. Per Dr. Silva, continue NS at 50 mL/hr.
[2019-02-25] MEDS: DOBUTamine-DoBUTrex 500mg/D5W 250 ML IV SCH (13:09)
--- NOTE | 2019-02-25 18:38 | NUR ---
Problems reprioritized. Patient report given, questions answered & plan of care reviewed with Raquel BEARD.
--- NOTE | 2019-02-25 19:34 | NUR ---
Patient in room PCU 3015. I have received report from Jasmin BEARD and had the opportunity to ask questions and assume patient care.
[2019-02-26] VITALS (14 sets, daily range): BP systolic 107–131; BP diastolic 50–81
[2019-02-26] MEDS: VANCOMYCIN LEVEL IV SCH (03:00)
[2019-02-26] MEDS: normal saline 1000ml 1,000 ML IV SCH ×2 (04:21→08:02)
--- NOTE | 2019-02-26 06:10 | NUR ---
Patient in room PCU 3015. I have received report from Raquel RN and Jason BEARD ([facility]) and had the opportunity to ask questions and assume patient care.
--- NOTE | 2019-02-26 06:11 | NUR ---
During bedside report patient found to be sleeping comfortably. No signs of distress. Will continue to monitor.
--- NOTE | 2019-02-26 06:18 | NUR ---
Patient in room PCU 3015B. I have received report from CHIRAG DUMONT AND MCKENZIE and had the opportunity to ask questions and assume patient care.
--- NOTE | 2019-02-26 06:34 | NUR ---
Problems reprioritized. Patient report given, questions answered & plan of care reviewed with Roselia BEARD.
[2019-02-26 06:40] LABS: BASOPHILS % (AUTO) 0.3 % (0-1); EOSINOPHILS # (AUTO) 0.2 X10'3 (0-0.9); EOSINOPHILS % (AUTO) 2.6 % (0-6); HEMATOCRIT 29.9 % (42.0-52.0); HEMOGLOBIN 10.1 g/dl (14.0-17.9); LYMPHOCYTES # (AUTO) 0.8 X10'3 (1.1-4.8); LYMPHOCYTES % (AUTO) 9.1 % (21-51); MEAN CORPUSCULAR HEMOGLOBIN 32.2 PG (27.0-31.0); MEAN CORPUSCULAR HGB CONC 33.8 g/dL (33.0-36.5); MEAN CORPUSCULAR VOLUME 95.4 FL (78-98); MEAN PLATELET VOLUME 9.1 FL (7.4-10.4); MONOCYTES # (AUTO) 0.9 X10'3 (0-0.9); MONOCYTES % (AUTO) 10.5 % (2-12); NEUTROPHILS # (AUTO) 6.4 X10'3 (1.8-7.7); NEUTROPHILS % (AUTO) 77.5 % (42-75); PLATELET COUNT 87 X10'3 (140-440); RED BLOOD COUNT 3.13 X10'6 (4.70-6.10); RED CELL DISTRIBUTION WIDTH 14.1 % (11.5-14.5); WHITE BLOOD COUNT 8.3 X10'3 (4.5-11.0)
[2019-02-26 07:07] LABS: ALANINE AMINOTRANSFERASE 29 U/L (12-78); ALBUMIN 1.7 G/DL (3.4-5.0); ALBUMIN/GLOBULIN RATIO 0.5 (1.1-1.5); ALKALINE PHOSPHATASE 49 IU/L (46-116); ANION GAP 9 (8-16); ASPARTATE AMINO TRANSFERASE 31 U/L (10-37); BILIRUBIN,TOTAL 0.3 MG/DL (0.1-1.0); BLOOD UREA NITROGEN 79 MG/DL (7-18); BUN/CREATININE RATIO 16.5 (5.4-32.0); CHLORIDE 112 MMOL/L (99-107); CREATININE 4.78 MG/DL (0.60-1.10); GLUCOSE 104 MG/DL (70-104); MAGNESIUM 2.5 MG/DL (1.5-2.4); POTASSIUM 4.4 MMOL/L (3.5-5.1); SODIUM 143 MMOL/L (135-145); TOTAL CARBON DIOXIDE 21.8 MMOL/L (24-32); TOTAL PROTEIN 4.9 G/DL (6.4-8.2); VANCOMYCIN,RANDOM 12.2 UG/ML; eGFR 12 ML/MIN
[2019-02-26] MEDS: amiodarone 200mg tablet PO SCH (07:17)
[2019-02-26] MEDS: docusate sod 100mg capsule PO SCH ×2 (07:18→20:00)
[2019-02-26] MEDS: aspirin 81mg tab.chew PO SCH ×2 (07:18→20:00)
[2019-02-26] MEDS: lactobacillus rhamnosus 10,000 MMU CELLS/CAPSULE PO SCH ×2 (07:18→20:00)
[2019-02-26] MEDS: NYSTATIN CREAM - 30GM TUBE TP SCH ×2 (07:23→20:02)
--- NOTE | 2019-02-26 07:51 | NUR ---
PAGER ID: [phone] MESSAGE: PCU 3015B Lorraine, PLT count 87, hold heparin or not ? Sylvia x [phone]? Addendum: 02/26/19 at 1056 by Roselia Clement RN Received orders to hold heparin for platelet count less than 100. Amended parameters in chart.
[2019-02-26] MEDS: heparin, porcine 5000 units/ml vial SQ SCH ×2 (08:00→20:00)
[2019-02-26] MEDS: K and/or MAG REPLACEMENT MC SCH (08:00)
--- NOTE | 2019-02-26 08:01 | NUR ---
Paged Dr Silva regarding positive MRSA blood cultures "PAGER ID: [phone] MESSAGE: [id number] Roselia [id number] Lorraineclarence Toyn patient had MRSA in the blood culture taken from R hand 02/23/19"
[2019-02-26] MEDS ORDERED: vancomycin inj 1,250 MG in NS 250ml IV soln IV ONE (08:20)
--- NOTE | 2019-02-26 11:27 | NUR ---
Initial: Pt admit with MRSA septicemia, currently on abx for tx. 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 Pt currently on a heart healthy diet with documented PO intake averaging 50% likely meeting nutrient needs for geriatric age. LBM 02/20, pt recently started on routine Colace, with MoM PRN last given 02/23, and a suppository PRN not yet given. Pt with no edema or wounds. Will continue to follow. Recommendations: 1) Continue with heart healthy diet 2) Monitor need for ONS for additional nutrients if to start dialysis 3) Monitor need for addition of renal diet 4) Monitor need for additional bowel care 5) Wt per rx Addendum: 02/26/19 at [address] Amended: Links added.
--- NOTE | 2019-02-26 18:30 | NUR ---
Orientee documentation: I have reviewed and agree with all interventions, assessments performed and documented by Sylvia Rojas RN. Orientee Medication Administration: For this medication-pass time frame, all medication were reviewed, dispensed, administered and documented per hospital policy by Sylvia Rojas RN.
[2019-02-26] MEDS: DOBUTamine-DoBUTrex 500mg/D5W 250 ML IV SCH (22:35)
[2019-02-27] VITALS (16 sets, daily range): BP systolic 103–130; BP diastolic 45–78
[2019-02-27] MEDS: VANCOMYCIN LEVEL IV SCH (03:00)
--- NOTE | 2019-02-27 05:01 | NUR ---
Paged Dr Tatum "PAGER ID: [phone] MESSAGE: [phone] Roselia 8206T Tony Peters patient had positive blood cultures Gram positive cocci in clusters drawn from the R arm 02/26 aerobic bottle"
--- NOTE | 2019-02-27 06:16 | NUR ---
Problems reprioritized. Patient report given, questions answered & plan of care reviewed with Shira BEARD and Sylvia BEARD.
[2019-02-27 06:23] LABS: BASOPHILS % (AUTO) 0.2 % (0-1); EOSINOPHILS # (AUTO) 0.2 X10'3 (0-0.9); EOSINOPHILS % (AUTO) 2.3 % (0-6); HEMATOCRIT 27.4 % (42.0-52.0); HEMOGLOBIN 9.3 g/dl (14.0-17.9); LYMPHOCYTES # (AUTO) 0.7 X10'3 (1.1-4.8); LYMPHOCYTES % (AUTO) 8.1 % (21-51); MEAN CORPUSCULAR HGB CONC 33.9 g/dL (33.0-36.5); MEAN CORPUSCULAR VOLUME 94.4 FL (78-98); MONOCYTES # (AUTO) 0.9 X10'3 (0-0.9); MONOCYTES % (AUTO) 11.1 % (2-12); NEUTROPHILS # (AUTO) 6.4 X10'3 (1.8-7.7); NEUTROPHILS % (AUTO) 78.3 % (42-75); PLATELET COUNT 112 X10'3 (140-440); RED BLOOD COUNT 2.91 X10'6 (4.70-6.10); RED CELL DISTRIBUTION WIDTH 13.8 % (11.5-14.5); WHITE BLOOD COUNT 8.1 X10'3 (4.5-11.0)
[2019-02-27 06:47] LABS: ALANINE AMINOTRANSFERASE 27 U/L (12-78); ALBUMIN 1.6 G/DL (3.4-5.0); ALBUMIN/GLOBULIN RATIO 0.5 (1.1-1.5); ALKALINE PHOSPHATASE 46 IU/L (46-116); ANION GAP 12 (8-16); ASPARTATE AMINO TRANSFERASE 25 U/L (10-37); BILIRUBIN,TOTAL 0.4 MG/DL (0.1-1.0); BLOOD UREA NITROGEN 78 MG/DL (7-18); BUN/CREATININE RATIO 17.1 (5.4-32.0); CALCIUM 7.5 MG/DL (8.5-10.1); CHLORIDE 113 MMOL/L (99-107); CREATININE 4.56 MG/DL (0.60-1.10); GLUCOSE 104 MG/DL (70-104); MAGNESIUM 2.4 MG/DL (1.5-2.4); PHOSPHORUS 3.3 MG/DL (2.3-4.5); POTASSIUM 4.1 MMOL/L (3.5-5.1); SODIUM 144 MMOL/L (135-145); TOTAL PROTEIN 4.6 G/DL (6.4-8.2); VANCOMYCIN,RANDOM 19.7 UG/ML; eGFR 12 ML/MIN
[2019-02-27 07:11] LABS: RHEUM FACTOR QUAL REFLEX TITER NEGATIVE (Neg)
[2019-02-27] MEDS: K and/or MAG REPLACEMENT MC SCH (08:00)
[2019-02-27] MEDS: amiodarone 200mg tablet PO SCH (08:37)
[2019-02-27] MEDS: lactobacillus rhamnosus 10,000 MMU CELLS/CAPSULE PO SCH ×2 (08:37→20:13)
[2019-02-27] MEDS: docusate sod 100mg capsule PO SCH ×2 (08:38→20:13)
[2019-02-27] MEDS: aspirin 81mg tab.chew PO SCH ×2 (08:38→20:13)
[2019-02-27] MEDS: heparin, porcine 5000 units/ml vial SQ SCH (08:38)
[2019-02-27] MEDS: NYSTATIN CREAM - 30GM TUBE TP SCH ×2 (08:44→20:00)
[2019-02-27] MEDS ORDERED: midazolam 2 mg/2 ml injection ONE (11:19)
[2019-02-27] MEDS ORDERED: fentaNYL/PF 50MCG/1 ML 2ML syringe ONE (11:19)
[2019-02-27] MEDS ORDERED: lidocaine 1%/epinephrine 1:100,000 injection 50ml vial ONE (11:20)
[2019-02-27] MEDS ORDERED: cefazolin/dext.iso 2gm/100ml 100 ML IV ONE (11:22)
[2019-02-27] MEDS: DAPTOmycin inj. 750 MG in normal saline 100ml IV soln 100 ML IV SCH (12:00)
[2019-02-27] MEDS ORDERED: vancomycin 1,000mg inj ONE ×2 (12:56→12:59)
[2019-02-27] MEDS ORDERED: LORazepam 1 MG tablet PO PRN (14:40)
[2019-02-27 17:32] LABS: CLARITY,URINE CLEAR (Clear); COLOR,URINE YELLOW (Yellow); GLUCOSE, URINE NEGATIVE (Neg); KETONES,URINE NEGATIVE (Neg); LEUKOCYTE ESTERASE ,URINE NEGATIVE (Neg); NITRITES, URINE NEGATIVE (Neg); OCCULT BLOOD,URINE TRACE-INTACT (Neg); PROTEIN,URINE NEGATIVE (Neg); UROBILINOGEN,URINE 0.2 E.U/dL (0.2-1.0)
[2019-02-27 17:36] LABS: UA COLLECTION TYPE VOIDED
[2019-02-27 17:41] LABS: BACTERIA,URINE NONE SEEN /HPF (Neg); RBC,URINE 0-2 /HPF (0-2); WBC,URINE 0-4 /HPF (0-4)
[2019-02-27 17:42] LABS: SQUAMOUS EPITHELIAL CELL,UR NONE SEEN /LPF (FEW)
--- NOTE | 2019-02-27 18:04 | NUR ---
Orientee documentation: I have reviewed and agree with interventions, assessments performed and documented by CHIRAG Ward. Orientee Medication Administration: For this medication-pass time frame, medication were reviewed, dispensed, administered and documented per hospital policy by CHIRAG Ward.
[2019-02-27 18:08] LABS: UA EOSINOPHILS NO EOS /HPF
--- NOTE | 2019-02-27 18:31 | NUR ---
Problems reprioritized. Patient report given, questions answered & plan of care reviewed with CHIRAG Quick.
[2019-02-27] MEDS: normal saline 1000ml 1,000 ML IV SCH (20:13)
[2019-02-27] MEDS: HYDROcodone/acetaminophen 10/325mg tab PO PRN (20:13)
[2019-02-28] VITALS (7 sets, daily range): BP systolic 104–130; BP diastolic 52–70
[2019-02-28] MEDS: VANCOMYCIN LEVEL IV SCH (03:00)
[2019-02-28 06:05] LABS: BASOPHILS % (AUTO) 0.4 % (0-1); EOSINOPHILS # (AUTO) 0.3 X10'3 (0-0.9); EOSINOPHILS % (AUTO) 2.6 % (0-6); HEMATOCRIT 26.9 % (42.0-52.0); HEMOGLOBIN 9.3 g/dl (14.0-17.9); LYMPHOCYTES # (AUTO) 0.9 X10'3 (1.1-4.8); LYMPHOCYTES % (AUTO) 8.3 % (21-51); MEAN CORPUSCULAR HEMOGLOBIN 32.6 PG (27.0-31.0); MEAN CORPUSCULAR HGB CONC 34.6 g/dL (33.0-36.5); MEAN CORPUSCULAR VOLUME 94.2 FL (78-98); MEAN PLATELET VOLUME 8.9 FL (7.4-10.4); MONOCYTES % (AUTO) 9.1 % (2-12); NEUTROPHILS # (AUTO) 8.3 X10'3 (1.8-7.7); NEUTROPHILS % (AUTO) 79.6 % (42-75); PLATELET COUNT 144 X10'3 (140-440); RED BLOOD COUNT 2.85 X10'6 (4.70-6.10); WHITE BLOOD COUNT 10.5 X10'3 (4.5-11.0)
[2019-02-28 06:14] LABS: ALANINE AMINOTRANSFERASE 27 U/L (12-78); ALBUMIN 1.6 G/DL (3.4-5.0); ALBUMIN/GLOBULIN RATIO 0.5 (1.1-1.5); ALKALINE PHOSPHATASE 48 IU/L (46-116); ANION GAP 12 (8-16); ASPARTATE AMINO TRANSFERASE 25 U/L (10-37); BILIRUBIN,TOTAL 0.3 MG/DL (0.1-1.0); BLOOD UREA NITROGEN 80 MG/DL (7-18); BUN/CREATININE RATIO 17.4 (5.4-32.0); CALCIUM 7.7 MG/DL (8.5-10.1); CHLORIDE 114 MMOL/L (99-107); GLUCOSE 105 MG/DL (70-104); MAGNESIUM 2.3 MG/DL (1.5-2.4); PHOSPHORUS 4.2 MG/DL (2.3-4.5); POTASSIUM 4.1 MMOL/L (3.5-5.1); SODIUM 144 MMOL/L (135-145); TOTAL CARBON DIOXIDE 18.4 MMOL/L (24-32); TOTAL PROTEIN 4.8 G/DL (6.4-8.2); VANCOMYCIN,RANDOM 15.3 UG/ML; eGFR 12 ML/MIN
--- NOTE | 2019-02-28 06:38 | NUR ---
Patient in room U 3015. I have received report from Ynes BEARD and had the opportunity to ask questions and assume patient care. Addendum: 02/28/19 at 0638 by Kely Mclean RN Amended: Links added.
[2019-02-28] MEDS: K and/or MAG REPLACEMENT MC SCH (07:39)
[2019-02-28] MEDS: DOBUTamine-DoBUTrex 500mg/D5W 250 ML IV SCH (08:04)
[2019-02-28] MEDS: amiodarone 200mg tablet PO SCH (08:16)
[2019-02-28] MEDS: lactobacillus rhamnosus 10,000 MMU CELLS/CAPSULE PO SCH ×2 (08:16→20:03)
[2019-02-28] MEDS: docusate sod 100mg capsule PO SCH ×2 (08:16→20:03)
[2019-02-28] MEDS: aspirin 81mg tab.chew PO SCH ×2 (08:16→20:04)
[2019-02-28] MEDS: NYSTATIN CREAM - 30GM TUBE TP SCH (08:16)
--- NOTE | 2019-02-28 10:16 | NUR ---
Charge nurse notified of pt's order for air bed.
--- NOTE | 2019-02-28 11:05 | NUR ---
Kaushik, Director, denied the ordered air bed for pt. Stated staff needs to be turning pt. frequently. Will attempt to obtain a Geomat for pt. while he is in the chair.
[2019-02-28] MEDS: ondansetron/PF 4mg/2ml inj IV PRN (12:20)
--- NOTE | 2019-02-28 12:24 | NUR ---
Medicated with Zofran for nausea and vomiting.
--- NOTE | 2019-02-28 13:53 | NUR ---
Jane armstrong Pt. placed on tele box.
[2019-02-28] MEDS: HYDROcodone/acetaminophen 10/325mg tab PO PRN (20:03)
[2019-03-01 02:00] VITALS: BP 118/55
[2019-03-01 06:30] VITALS: BP 122/62
--- NOTE | 2019-03-01 06:42 | NUR ---
Patient in room PCU 3015B I have received report from Ynes BEARD and had the opportunity to ask questions and assume patient care.
[2019-03-01 07:22] LABS: BASOPHILS % (AUTO) 0.4 % (0-1); EOSINOPHILS # (AUTO) 0.5 X10'3 (0-0.9); EOSINOPHILS % (AUTO) 3.8 % (0-6); HEMOGLOBIN 9.2 g/dl (14.0-17.9); LYMPHOCYTES # (AUTO) 1.4 X10'3 (1.1-4.8); LYMPHOCYTES % (AUTO) 11.3 % (21-51); MEAN CORPUSCULAR HEMOGLOBIN 31.6 PG (27.0-31.0); MEAN CORPUSCULAR VOLUME 95.8 FL (78-98); MEAN PLATELET VOLUME 8.7 FL (7.4-10.4); MONOCYTES % (AUTO) 8.3 % (2-12); NEUTROPHILS # (AUTO) 9.1 X10'3 (1.8-7.7); NEUTROPHILS % (AUTO) 76.2 % (42-75); PLATELET COUNT 178 X10'3 (140-440); RED BLOOD COUNT 2.92 X10'6 (4.70-6.10); RED CELL DISTRIBUTION WIDTH 14.3 % (11.5-14.5); WHITE BLOOD COUNT 11.9 X10'3 (4.5-11.0)
[2019-03-01 07:43] LABS: ANION GAP 10 (8-16); BILIRUBIN,TOTAL 0.2 MG/DL (0.1-1.0); BLOOD UREA NITROGEN 79 MG/DL (7-18); BUN/CREATININE RATIO 17.4 (5.4-32.0); CALCIUM 7.7 MG/DL (8.5-10.1); CHLORIDE 113 MMOL/L (99-107); CREATININE 4.54 MG/DL (0.60-1.10); GLUCOSE 96 MG/DL (70-104); PHOSPHORUS 4.4 MG/DL (2.3-4.5); POTASSIUM 4.4 MMOL/L (3.5-5.1); SODIUM 143 MMOL/L (135-145); TOTAL CARBON DIOXIDE 19.9 MMOL/L (24-32); eGFR 12 ML/MIN
[2019-03-01 07:44] LABS: ALANINE AMINOTRANSFERASE 22 U/L (12-78); ALBUMIN 1.6 G/DL (3.4-5.0); ALBUMIN/GLOBULIN RATIO 0.5 (1.1-1.5); ALKALINE PHOSPHATASE 48 IU/L (46-116); ASPARTATE AMINO TRANSFERASE 20 U/L (10-37); TOTAL PROTEIN 4.9 G/DL (6.4-8.2)
[2019-03-01] MEDS: K and/or MAG REPLACEMENT MC SCH (08:00)
[2019-03-01] MEDS: DAPTOmycin inj. 750 MG in normal saline 100ml IV soln 100 ML IV SCH (08:34)
[2019-03-01] MEDS: amiodarone 200mg tablet PO SCH (08:35)
[2019-03-01] MEDS: aspirin 81mg tab.chew PO SCH ×2 (08:35→20:54)
[2019-03-01] MEDS: heparin, porcine 5000 units/ml vial SQ SCH ×2 (08:35→20:54)
[2019-03-01] MEDS: docusate sod 100mg capsule PO SCH ×2 (08:35→20:54)
[2019-03-01] MEDS: lactobacillus rhamnosus 10,000 MMU CELLS/CAPSULE PO SCH ×2 (08:35→20:54)
[2019-03-01 11:00] VITALS: BP 112/60
--- NOTE | 2019-03-01 11:53 | NUR ---
reassessment: Pt PO 50% avg heart healthy meals but fluctuating. LBM 4/5 receiving colace BID w/ MoM PRN last dose 02/23. ROCCO d/w RN regarding making MoM routine vs additional bowel care per MD approval. ROCCO also recommended A1C check per MD approval given pt hx T2DM w/ no A1C's prior admits. GLU is WNL on heart healthy diet and not triggered hyperglycemia protocol. Ensure high protein TIDWM added for additional protein needs given infection; MD and dietary notified. Will continue to monitor. Recommendations: 1) Continue heart healthy diet 2) ensure high protein TIDWM 3) routine bowel care 4) A1C per MD w/ hx DM 5) Wt per rx Addendum: 03/01/19 at [address] Amended: Links added.
[2019-03-01 15:00] VITALS: BP 113/64
--- NOTE | 2019-03-01 18:07 | NUR ---
Problems reprioritized. Patient report given, questions answered & plan of care reviewed with Stephany BEARD. Pt is resting comfortably in bed.
[2019-03-01 18:30] VITALS: BP 116/68
[2019-03-01] MEDS: HYDROcodone/acetaminophen 10/325mg tab PO PRN (20:54)
[2019-03-01] MEDS: temazepam 15mg capsule PO PRN (20:54)
[2019-03-02] VITALS (7 sets, daily range): BP systolic 115–137; BP diastolic 64–76
[2019-03-02] MEDS: HYDROcodone/acetaminophen 10/325mg tab PO PRN (02:17)
--- NOTE | 2019-03-02 06:05 | NUR ---
Patient in room PCU 3015. I have received report from Stephany BEARD and had the opportunity to ask questions and assume patient care.
[2019-03-02 06:06] LABS: BASOPHILS # (AUTO) 0.1 X10'3 (0-0.2); BASOPHILS % (AUTO) 0.7 % (0-1); EOSINOPHILS # (AUTO) 0.3 X10'3 (0-0.9); EOSINOPHILS % (AUTO) 2.6 % (0-6); HEMATOCRIT 27.4 % (42.0-52.0); HEMOGLOBIN 9.1 g/dl (14.0-17.9); LYMPHOCYTES # (AUTO) 1.4 X10'3 (1.1-4.8); MEAN CORPUSCULAR HEMOGLOBIN 31.7 PG (27.0-31.0); MEAN CORPUSCULAR HGB CONC 33.2 g/dL (33.0-36.5); MEAN CORPUSCULAR VOLUME 95.4 FL (78-98); MEAN PLATELET VOLUME 8.5 FL (7.4-10.4); MONOCYTES # (AUTO) 1.1 X10'3 (0-0.9); MONOCYTES % (AUTO) 8.7 % (2-12); NEUTROPHILS # (AUTO) 9.6 X10'3 (1.8-7.7); PLATELET COUNT 202 X10'3 (140-440); RED BLOOD COUNT 2.87 X10'6 (4.70-6.10); RED CELL DISTRIBUTION WIDTH 14.2 % (11.5-14.5); WHITE BLOOD COUNT 12.4 X10'3 (4.5-11.0)
[2019-03-02 06:24] LABS: ALANINE AMINOTRANSFERASE 21 U/L (12-78); ALBUMIN 1.6 G/DL (3.4-5.0); ALBUMIN/GLOBULIN RATIO 0.4 (1.1-1.5); ALKALINE PHOSPHATASE 53 IU/L (46-116); ANION GAP 11 (8-16); ASPARTATE AMINO TRANSFERASE 20 U/L (10-37); BILIRUBIN,TOTAL 0.2 MG/DL (0.1-1.0); BLOOD UREA NITROGEN 84 MG/DL (7-18); BUN/CREATININE RATIO 17.4 (5.4-32.0); CALCIUM 7.8 MG/DL (8.5-10.1); CHLORIDE 112 MMOL/L (99-107); CREATININE 4.83 MG/DL (0.60-1.10); GLUCOSE 92 MG/DL (70-104); POTASSIUM 4.4 MMOL/L (3.5-5.1); SODIUM 142 MMOL/L (135-145); TOTAL CARBON DIOXIDE 18.7 MMOL/L (24-32); TOTAL PROTEIN 5.2 G/DL (6.4-8.2); eGFR 12 ML/MIN
[2019-03-02] MEDS: lactobacillus rhamnosus 10,000 MMU CELLS/CAPSULE PO SCH ×2 (07:06→21:23)
[2019-03-02] MEDS: docusate sod 100mg capsule PO SCH ×2 (07:06→21:23)
[2019-03-02] MEDS: aspirin 81mg tab.chew PO SCH ×2 (07:06→21:24)
[2019-03-02] MEDS: amiodarone 200mg tablet PO SCH (07:07)
[2019-03-02] MEDS: heparin, porcine 5000 units/ml vial SQ SCH ×2 (07:07→21:25)
[2019-03-02] MEDS: K and/or MAG REPLACEMENT MC SCH (08:00)
--- NOTE | 2019-03-02 18:05 | NUR ---
Problems reprioritized. Patient report given, questions answered & plan of care reviewed with Stephany BEARD.
[2019-03-03] VITALS (8 sets, daily range): BP systolic 114–138; BP diastolic 72–81
--- NOTE | 2019-03-03 06:00 | NUR ---
Assumed pt care Ginger BEARD
[2019-03-03 06:38] LABS: BASOPHILS # (AUTO) 0.1 X10'3 (0-0.2); BASOPHILS % (AUTO) 0.8 % (0-1); EOSINOPHILS # (AUTO) 0.2 X10'3 (0-0.9); EOSINOPHILS % (AUTO) 1.6 % (0-6); HEMOGLOBIN 9.2 g/dl (14.0-17.9); LYMPHOCYTES # (AUTO) 1.3 X10'3 (1.1-4.8); LYMPHOCYTES % (AUTO) 13.3 % (21-51); MEAN CORPUSCULAR HEMOGLOBIN 32.1 PG (27.0-31.0); MEAN CORPUSCULAR VOLUME 94.3 FL (78-98); MEAN PLATELET VOLUME 8.4 FL (7.4-10.4); MONOCYTES # (AUTO) 0.8 X10'3 (0-0.9); MONOCYTES % (AUTO) 7.8 % (2-12); NEUTROPHILS # (AUTO) 7.5 X10'3 (1.8-7.7); NEUTROPHILS % (AUTO) 76.5 % (42-75); PLATELET COUNT 231 X10'3 (140-440); RED BLOOD COUNT 2.86 X10'6 (4.70-6.10); RED CELL DISTRIBUTION WIDTH 13.7 % (11.5-14.5); WHITE BLOOD COUNT 9.8 X10'3 (4.5-11.0)
[2019-03-03 06:47] LABS: ALANINE AMINOTRANSFERASE 20 U/L (12-78); ALBUMIN 1.6 G/DL (3.4-5.0); ALBUMIN/GLOBULIN RATIO 0.4 (1.1-1.5); ALKALINE PHOSPHATASE 52 IU/L (46-116); ANION GAP 12 (8-16); ASPARTATE AMINO TRANSFERASE 19 U/L (10-37); BILIRUBIN,TOTAL 0.3 MG/DL (0.1-1.0); BLOOD UREA NITROGEN 92 MG/DL (7-18); BUN/CREATININE RATIO 17.9 (5.4-32.0); CALCIUM 7.7 MG/DL (8.5-10.1); CHLORIDE 111 MMOL/L (99-107); CREATININE 5.14 MG/DL (0.60-1.10); GLUCOSE 97 MG/DL (70-104); PHOSPHORUS 5.6 MG/DL (2.3-4.5); POTASSIUM 4.4 MMOL/L (3.5-5.1); SODIUM 142 MMOL/L (135-145); TOTAL CARBON DIOXIDE 19.2 MMOL/L (24-32); TOTAL PROTEIN 5.4 G/DL (6.4-8.2); eGFR 11 ML/MIN
[2019-03-03] MEDS: K and/or MAG REPLACEMENT MC SCH (08:00)
[2019-03-03] MEDS: lactobacillus rhamnosus 10,000 MMU CELLS/CAPSULE PO SCH ×2 (09:13→22:59)
[2019-03-03] MEDS: heparin, porcine 5000 units/ml vial SQ SCH ×2 (09:13→23:00)
[2019-03-03] MEDS: aspirin 81mg tab.chew PO SCH ×2 (09:13→22:59)
[2019-03-03] MEDS: amiodarone 200mg tablet PO SCH (09:13)
[2019-03-03] MEDS: DAPTOmycin inj. 750 MG in normal saline 100ml IV soln 100 ML IV SCH (09:13)
[2019-03-03] MEDS: docusate sod 100mg capsule PO SCH ×2 (09:13→23:00)
[2019-03-03] MEDS ORDERED: normal saline 1000ml 250 ML IV PRN (14:00)
[2019-03-03] MEDS ORDERED: heparin 1,000unit/ml 10ml vial 10 ML IV ONE (14:00)
[2019-03-03] MEDS ORDERED: epoetin 20,000 units/ml inj IV ONE (14:00)
[2019-03-03] MEDS ORDERED: heparin 1,000 units/ml 10ml inj HE ONE ×2 (14:05)
--- NOTE | 2019-03-03 16:25 | NUR ---
pt transferred off unit for procedure, temporary port placement for dialysis. RN came to collect patient and hand off given.
[2019-03-03] MEDS ORDERED: LIDOcaine 1%/PF 5ML 10 MG/ML VIAL ONE (16:31)
[2019-03-03] MEDS ORDERED: fentaNYL/PF 50MCG/1 ML 2ML syringe ONE (16:48)
[2019-03-03] MEDS ORDERED: heparin 1,000unit/ml 10ml vial 10 ML ONE (16:48)
[2019-03-03] MEDS ORDERED: heparin 1,000 units/ml 10ml inj ICATH ONE (17:00)
[2019-03-03] MEDS ORDERED: LIDOcaine 1%/PF 5ML 10 MG/ML VIAL SQ ONE (17:00)
[2019-03-03] MEDS ORDERED: fentaNYL/PF 50MCG/1 ML 2ML syringe IV PRN (17:00)
--- NOTE | 2019-03-03 17:30 | NUR ---
pt returned to the unit, pt is in stable condition, alert and oriented. states he has pain in lower back and in L rib area 5/10.
[2019-03-04 02:00] VITALS: BP 108/64
[2019-03-04 06:00] VITALS: BP 128/70
[2019-03-04] MEDS ORDERED: heparin 1,000unit/ml 10ml vial 10 ML IV ONE (08:00)
[2019-03-04] MEDS: K and/or MAG REPLACEMENT MC SCH (08:00)
[2019-03-04] MEDS ORDERED: heparin 1,000 units/ml 10ml inj HE ONE ×2 (08:00)
[2019-03-04] MEDS ORDERED: normal saline 1000ml 250 ML IV PRN (08:00)
[2019-03-04] MEDS ORDERED: epoetin 20,000 units/ml inj IV ONE (08:00)
[2019-03-04 08:11] LABS: COMPLEMENT C3, SERUM 117 mg/dL (82-167); COMPLEMENT C4, SERUM 32 mg/dL (14-44)
[2019-03-04 08:45] LABS: BASOPHILS # (AUTO) 0.1 X10'3 (0-0.2); BASOPHILS % (AUTO) 0.6 % (0-1); EOSINOPHILS # (AUTO) 0.1 X10'3 (0-0.9); EOSINOPHILS % (AUTO) 1.6 % (0-6); HEMATOCRIT 27.9 % (42.0-52.0); HEMOGLOBIN 9.5 g/dl (14.0-17.9); MEAN CORPUSCULAR HEMOGLOBIN 31.8 PG (27.0-31.0); MEAN CORPUSCULAR VOLUME 93.6 FL (78-98); MEAN PLATELET VOLUME 8.2 FL (7.4-10.4); MONOCYTES # (AUTO) 0.8 X10'3 (0-0.9); MONOCYTES % (AUTO) 9.5 % (2-12); NEUTROPHILS # (AUTO) 6.3 X10'3 (1.8-7.7); NEUTROPHILS % (AUTO) 76.3 % (42-75); PLATELET COUNT 229 X10'3 (140-440); RED BLOOD COUNT 2.98 X10'6 (4.70-6.10); WHITE BLOOD COUNT 8.3 X10'3 (4.5-11.0)
[2019-03-04] MEDS: amiodarone 200mg tablet PO SCH (08:52)
[2019-03-04] MEDS: aspirin 81mg tab.chew PO SCH ×2 (08:52→20:52)
[2019-03-04] MEDS: heparin, porcine 5000 units/ml vial SQ SCH ×2 (08:52→20:52)
[2019-03-04] MEDS: docusate sod 100mg capsule PO SCH ×2 (08:52→20:52)
[2019-03-04] MEDS: lactobacillus rhamnosus 10,000 MMU CELLS/CAPSULE PO SCH ×2 (09:10→20:52)
[2019-03-04 11:11] VITALS: BP 108/69
--- NOTE | 2019-03-04 11:57 | NUR ---
PAGER ID: [phone] MESSAGE: [id number] YUNIEL HAD 2 MINIUTE AND 29 SEC OF VTAC. MARIAELENA KING VS STABLE. MARIAELENA KING Addendum: 03/04/19 at 1157 by Mariaelena Jimenez RN Amended: Links added.
[2019-03-04 12:25] LABS: ALANINE AMINOTRANSFERASE 24 U/L (12-78); ALBUMIN 1.7 G/DL (3.4-5.0); ALBUMIN/GLOBULIN RATIO 0.4 (1.1-1.5); ALKALINE PHOSPHATASE 48 IU/L (46-116); ANION GAP 12 (8-16); ASPARTATE AMINO TRANSFERASE 25 U/L (10-37); BILIRUBIN,TOTAL 0.3 MG/DL (0.1-1.0); BLOOD UREA NITROGEN 79 MG/DL (7-18); BUN/CREATININE RATIO 16.3 (5.4-32.0); CALCIUM 7.6 MG/DL (8.5-10.1); CHLORIDE 108 MMOL/L (99-107); CREATININE 4.85 MG/DL (0.60-1.10); GLUCOSE 102 MG/DL (70-104); MAGNESIUM 2.2 MG/DL (1.5-2.4); POTASSIUM 4.5 MMOL/L (3.5-5.1); SODIUM 142 MMOL/L (135-145); TOTAL CARBON DIOXIDE 22.1 MMOL/L (24-32); TOTAL PROTEIN 5.5 G/DL (6.4-8.2); eGFR 11 ML/MIN
[2019-03-04] MEDS: NUT.TX.IMP.RENAL FXN,LAC-REDUC (Nepro) 237 ML VANILLA PO SCH ×2 (13:00→18:00)
[2019-03-04 16:00] VITALS: BP 131/72
--- NOTE | 2019-03-04 18:07 | NUR ---
reassessment: Pt remains constipated LBM 4/5 8 days receiving colace. no MoM since 02/23 and dulcolax PRN never given. ROCCO [email or web address] for addition routine bowel care. PO has actually improved to 75% ONS and meals meeting needs. Pt still needs A1C order given hx DM w/ no prior A1C. Will continue to monitor for additional bowel care needs. Recommendations: 1) Continue heart healthy diet 2) ensure high protein TIDWM 3) routine bowel care 4) A1C per w/ hx DM 5) Wt per rx Addendum: 03/04/19 at [address] Amended: Links added.
[2019-03-04 19:00] VITALS: BP 118/74
[2019-03-04] MEDS: magnesium hydroxide 30ml (MOM) UD suspension PO PRN (20:57)
[2019-03-04 23:00] VITALS: BP 122/73
[2019-03-05 03:00] VITALS: BP 118/76
[2019-03-05 06:00] VITALS: BP 121/73
--- NOTE | 2019-03-05 06:14 | NUR ---
Problems reprioritized. Patient report given, questions answered & plan of care reviewed with CHIRAG cShroeder.
[2019-03-05] MEDS: aspirin 81mg tab.chew PO SCH ×2 (07:59→19:12)
[2019-03-05] MEDS: heparin, porcine 5000 units/ml vial SQ SCH ×2 (07:59→19:12)
[2019-03-05] MEDS: docusate sod 100mg capsule PO SCH ×2 (07:59→19:11)
[2019-03-05] MEDS: amiodarone 200mg tablet PO SCH (07:59)
[2019-03-05] MEDS: lactobacillus rhamnosus 10,000 MMU CELLS/CAPSULE PO SCH ×2 (07:59→19:11)
[2019-03-05] MEDS: NUT.TX.IMP.RENAL FXN,LAC-REDUC (Nepro) 237 ML VANILLA PO SCH ×3 (08:00→18:00)
[2019-03-05] MEDS: K and/or MAG REPLACEMENT MC SCH (08:00)
[2019-03-05] MEDS: DAPTOmycin inj. 750 MG in normal saline 100ml IV soln 100 ML IV SCH (10:17)
[2019-03-05 11:00] VITALS: BP 106/65
--- NOTE | 2019-03-05 12:04 | NUR ---
F/u: RN called request change to Nepro from ensure high protein since new HD pt. ROCCO told RN that pt not on renal diet; to change to renal/heart healthy diet w/ Sweetie HAYES. and dietary aware. Pt finally had BM following 9 days constipation. Addendum: 03/05/19 at [address] Amended: Links added.
[2019-03-05 13:08] LABS: HBSAG SCREEN Negative (Negative)
[2019-03-05 15:15] VITALS: BP 108/64
--- NOTE | 2019-03-05 18:10 | NUR ---
Patient in room PCU 3015. I have received report from Ginger BEARD and had the opportunity to ask questions and assume patient care.
[2019-03-05 19:00] VITALS: BP 130/61
[2019-03-05 23:00] VITALS: BP 141/78
[2019-03-06] MEDS: acetaminophen 325mg tablet PO PRN ×2 (02:29→17:04)
[2019-03-06 03:00] VITALS: BP 128/83
[2019-03-06 06:07] LABS: BASOPHILS # (AUTO) 0.1 X10'3 (0-0.2); BASOPHILS % (AUTO) 1.1 % (0-1); EOSINOPHILS # (AUTO) 0.1 X10'3 (0-0.9); EOSINOPHILS % (AUTO) 1.3 % (0-6); HEMATOCRIT 26.1 % (42.0-52.0); LYMPHOCYTES # (AUTO) 1.3 X10'3 (1.1-4.8); LYMPHOCYTES % (AUTO) 18.3 % (21-51); MEAN CORPUSCULAR HGB CONC 34.4 g/dL (33.0-36.5); MEAN CORPUSCULAR VOLUME 92.8 FL (78-98); MEAN PLATELET VOLUME 8.8 FL (7.4-10.4); MONOCYTES # (AUTO) 0.9 X10'3 (0-0.9); MONOCYTES % (AUTO) 12.5 % (2-12); NEUTROPHILS # (AUTO) 4.7 X10'3 (1.8-7.7); NEUTROPHILS % (AUTO) 66.8 % (42-75); PLATELET COUNT 254 X10'3 (140-440); RED BLOOD COUNT 2.81 X10'6 (4.70-6.10); RED CELL DISTRIBUTION WIDTH 13.7 % (11.5-14.5); WHITE BLOOD COUNT 7.1 X10'3 (4.5-11.0)
[2019-03-06 06:32] LABS: ALANINE AMINOTRANSFERASE 21 U/L (12-78); ALBUMIN 1.9 G/DL (3.4-5.0); ALBUMIN/GLOBULIN RATIO 0.5 (1.1-1.5); ALKALINE PHOSPHATASE 54 IU/L (46-116); ANION GAP 11 (8-16); ASPARTATE AMINO TRANSFERASE 21 U/L (10-37); BILIRUBIN,TOTAL 0.3 MG/DL (0.1-1.0); BLOOD UREA NITROGEN 68 MG/DL (7-18); CALCIUM 8.2 MG/DL (8.5-10.1); CHLORIDE 105 MMOL/L (99-107); CREATININE 5.65 MG/DL (0.60-1.10); GLUCOSE 109 MG/DL (70-104); MAGNESIUM 2.6 MG/DL (1.5-2.4); PHOSPHORUS 5.3 MG/DL (2.3-4.5); POTASSIUM 4.6 MMOL/L (3.5-5.1); SODIUM 139 MMOL/L (135-145); TOTAL CARBON DIOXIDE 22.6 MMOL/L (24-32); TOTAL PROTEIN 6.1 G/DL (6.4-8.2); eGFR 10 ML/MIN
[2019-03-06 07:00] VITALS: BP 98/66
[2019-03-06] MEDS: amiodarone 200mg tablet PO SCH (07:54)
[2019-03-06] MEDS: docusate sod 100mg capsule PO SCH ×2 (07:54→20:01)
[2019-03-06] MEDS: aspirin 81mg tab.chew PO SCH ×2 (07:54→20:01)
[2019-03-06] MEDS: lactobacillus rhamnosus 10,000 MMU CELLS/CAPSULE PO SCH ×2 (07:54→20:01)
[2019-03-06] MEDS: heparin, porcine 5000 units/ml vial SQ SCH ×2 (07:55→20:01)
[2019-03-06] MEDS: K and/or MAG REPLACEMENT MC SCH (08:00)
[2019-03-06] MEDS: NUT.TX.IMP.RENAL FXN,LAC-REDUC (Nepro) 237 ML VANILLA PO SCH ×3 (08:03→20:01)
[2019-03-06 11:00] VITALS: BP 131/74
[2019-03-06 12:32] LABS: ALANINE AMINOTRANSFERASE 27 U/L (12-78); ALBUMIN 2.2 G/DL (3.4-5.0); ALBUMIN/GLOBULIN RATIO 0.5 (1.1-1.5); ALKALINE PHOSPHATASE 57 IU/L (46-116); ANION GAP 11 (8-16); ASPARTATE AMINO TRANSFERASE 22 U/L (10-37); BILIRUBIN,TOTAL 0.3 MG/DL (0.1-1.0); BLOOD UREA NITROGEN 68 MG/DL (7-18); BUN/CREATININE RATIO 11.1 (5.4-32.0); CALCIUM 8.1 MG/DL (8.5-10.1); CHLORIDE 103 MMOL/L (99-107); CREATININE 6.11 MG/DL (0.60-1.10); GLUCOSE 109 MG/DL (70-104); MAGNESIUM 2.6 MG/DL (1.5-2.4); POTASSIUM 4.7 MMOL/L (3.5-5.1); SODIUM 140 MMOL/L (135-145); TOTAL CARBON DIOXIDE 26.1 MMOL/L (24-32); TOTAL PROTEIN 6.7 G/DL (6.4-8.2); eGFR 9 ML/MIN
[2019-03-06 18:00] VITALS: BP 113/71
--- NOTE | 2019-03-06 18:17 | NUR ---
Problems reprioritized. Patient report given, questions answered & plan of care reviewed with Elisabet BEARD.
[2019-03-06 22:00] VITALS: BP 116/70
[2019-03-07 02:00] VITALS: BP 104/58
[2019-03-07] MEDS: HYDROcodone/acetaminophen 10/325mg tab PO PRN (03:43)
--- NOTE | 2019-03-07 06:25 | NUR ---
Patient in room PCU 3015. I have received report from CHIRAG Bhandari and had the opportunity to ask questions and assume patient care. Patient resting comfortably at this time. Call light and items of frequent use in reach of patient.
--- NOTE | 2019-03-07 06:38 | NUR ---
Problems reprioritized. Patient report given, questions answered & plan of care reviewed with CHIRAG Guzman.
[2019-03-07 06:56] VITALS: BP 123/68
[2019-03-07] MEDS: K and/or MAG REPLACEMENT MC SCH (08:00)
[2019-03-07] MEDS ORDERED: normal saline 1000ml 250 ML IV PRN (08:00)
[2019-03-07] MEDS ORDERED: epoetin 20,000 units/ml inj IV ONE (08:00)
[2019-03-07] MEDS: heparin, porcine 5000 units/ml vial SQ SCH ×2 (08:00→20:08)
[2019-03-07] MEDS ORDERED: heparin 1,000 units/ml 10ml inj HE ONE ×2 (08:00)
[2019-03-07] MEDS ORDERED: heparin 1,000unit/ml 10ml vial 10 ML IV ONE (08:00)
[2019-03-07] MEDS: NUT.TX.IMP.RENAL FXN,LAC-REDUC (Nepro) 237 ML VANILLA PO SCH ×3 (08:15→18:00)
[2019-03-07] MEDS: amiodarone 200mg tablet PO SCH (08:15)
[2019-03-07] MEDS: aspirin 81mg tab.chew PO SCH ×2 (08:15→20:07)
[2019-03-07] MEDS: docusate sod 100mg capsule PO SCH ×2 (08:15→20:07)
[2019-03-07] MEDS: lactobacillus rhamnosus 10,000 MMU CELLS/CAPSULE PO SCH ×2 (08:16→20:07)
[2019-03-07 09:22] LABS: BASOPHILS # (AUTO) 0.1 X10'3 (0-0.2); BASOPHILS % (AUTO) 1.2 % (0-1); EOSINOPHILS # (AUTO) 0.1 X10'3 (0-0.9); HEMATOCRIT 26.8 % (42.0-52.0); LYMPHOCYTES # (AUTO) 1.3 X10'3 (1.1-4.8); LYMPHOCYTES % (AUTO) 16.5 % (21-51); MEAN CORPUSCULAR HEMOGLOBIN 31.8 PG (27.0-31.0); MEAN CORPUSCULAR HGB CONC 33.6 g/dL (33.0-36.5); MEAN CORPUSCULAR VOLUME 94.8 FL (78-98); MEAN PLATELET VOLUME 8.5 FL (7.4-10.4); MONOCYTES % (AUTO) 12.5 % (2-12); NEUTROPHILS # (AUTO) 5.5 X10'3 (1.8-7.7); NEUTROPHILS % (AUTO) 68.8 % (42-75); PLATELET COUNT 263 X10'3 (140-440); RED BLOOD COUNT 2.83 X10'6 (4.70-6.10); RED CELL DISTRIBUTION WIDTH 14.1 % (11.5-14.5); WHITE BLOOD COUNT 7.9 X10'3 (4.5-11.0)
[2019-03-07 09:28] LABS: ALANINE AMINOTRANSFERASE 18 U/L (12-78); ALBUMIN/GLOBULIN RATIO 0.5 (1.1-1.5); ALKALINE PHOSPHATASE 55 IU/L (46-116); ANION GAP 9 (8-16); ASPARTATE AMINO TRANSFERASE 22 U/L (10-37); BILIRUBIN,TOTAL 0.3 MG/DL (0.1-1.0); BLOOD UREA NITROGEN 81 MG/DL (7-18); BUN/CREATININE RATIO 12.3 (5.4-32.0); CALCIUM 8.1 MG/DL (8.5-10.1); CHLORIDE 104 MMOL/L (99-107); CREATININE 6.58 MG/DL (0.60-1.10); GLUCOSE 110 MG/DL (70-104); MAGNESIUM 2.6 MG/DL (1.5-2.4); PHOSPHORUS 6.3 MG/DL (2.3-4.5); SODIUM 139 MMOL/L (135-145); TOTAL PROTEIN 6.1 G/DL (6.4-8.2); eGFR 8 ML/MIN
--- NOTE | 2019-03-07 09:30 | NUR ---
Patient had a scheduled IV Daptomycin 750mg due at 0800. The medication was not on the unit so pharmacy was messaged at 0811. Serena from pharmacy called around 0900 stating that we do not have Daptomycin in the hospital at all and that they are waiting on a dose from [facility] to be delivered.
[2019-03-07 11:33] VITALS: BP_SYST 116; BP_SYST 98; BP_DIAS 68
--- NOTE | 2019-03-07 12:29 | NUR ---
Daptomycin brought up by pharmacy. Patient in the middle of dialysis. Dialysis nurse stated that the medication should be held during dialysis.
[2019-03-07] MEDS: DAPTOmycin inj. 750 MG in normal saline 100ml IV soln 100 ML IV SCH (14:39)
[2019-03-07 16:36] VITALS: BP 101/49
[2019-03-07 18:00] VITALS: BP 123/53
--- NOTE | 2019-03-07 18:32 | NUR ---
Problems reprioritized. Patient report given, questions answered & plan of care reviewed with CHIRAG Devlin. Patient resting comfortably at this time. Call light and items of frequnet use in reach of patient.
[2019-03-07 23:00] VITALS: BP 117/56
[2019-03-08 03:00] VITALS: BP 124/63
[2019-03-08 05:56] LABS: BASOPHILS # (AUTO) 0.1 X10'3 (0-0.2); BASOPHILS % (AUTO) 2.2 % (0-1); EOSINOPHILS # (AUTO) 0.1 X10'3 (0-0.9); EOSINOPHILS % (AUTO) 1.4 % (0-6); HEMATOCRIT 24.5 % (42.0-52.0); HEMOGLOBIN 8.4 g/dl (14.0-17.9); LYMPHOCYTES # (AUTO) 1.6 X10'3 (1.1-4.8); LYMPHOCYTES % (AUTO) 31.8 % (21-51); MEAN CORPUSCULAR HEMOGLOBIN 32.6 PG (27.0-31.0); MEAN CORPUSCULAR HGB CONC 34.4 g/dL (33.0-36.5); MEAN CORPUSCULAR VOLUME 94.6 FL (78-98); MEAN PLATELET VOLUME 8.6 FL (7.4-10.4); MONOCYTES # (AUTO) 0.6 X10'3 (0-0.9); NEUTROPHILS # (AUTO) 2.6 X10'3 (1.8-7.7); NEUTROPHILS % (AUTO) 52.6 % (42-75); PLATELET COUNT 257 X10'3 (140-440); RED BLOOD COUNT 2.59 X10'6 (4.70-6.10); RED CELL DISTRIBUTION WIDTH 13.9 % (11.5-14.5); WHITE BLOOD COUNT 4.9 X10'3 (4.5-11.0)
[2019-03-08 06:00] VITALS: BP 133/64
[2019-03-08 06:07] LABS: ALANINE AMINOTRANSFERASE 14 U/L (12-78); ALBUMIN 1.8 G/DL (3.4-5.0); ALBUMIN/GLOBULIN RATIO 0.5 (1.1-1.5); ALKALINE PHOSPHATASE 52 IU/L (46-116); ANION GAP 10 (8-16); ASPARTATE AMINO TRANSFERASE 18 U/L (10-37); BILIRUBIN,TOTAL 0.3 MG/DL (0.1-1.0); BLOOD UREA NITROGEN 34 MG/DL (7-18); BUN/CREATININE RATIO 8.4 (5.4-32.0); CALCIUM 8.1 MG/DL (8.5-10.1); CHLORIDE 103 MMOL/L (99-107); CREATINE KINASE 52 U/L (39-308); CREATININE 4.03 MG/DL (0.60-1.10); GLUCOSE 78 MG/DL (70-104); MAGNESIUM 2.2 MG/DL (1.5-2.4); PHOSPHORUS 4.4 MG/DL (2.3-4.5); POTASSIUM 4.4 MMOL/L (3.5-5.1); SODIUM 139 MMOL/L (135-145); TOTAL CARBON DIOXIDE 25.9 MMOL/L (24-32); TOTAL PROTEIN 5.8 G/DL (6.4-8.2); eGFR 14 ML/MIN
--- NOTE | 2019-03-08 06:37 | NUR ---
Patient in room PCU 3015. I have received report from CHIRAG Devlin and had the opportunity to ask questions and assume patient care.
[2019-03-08] MEDS: K and/or MAG REPLACEMENT MC SCH (08:00)
[2019-03-08] MEDS: heparin, porcine 5000 units/ml vial SQ SCH (08:21)
[2019-03-08] MEDS: lactobacillus rhamnosus 10,000 MMU CELLS/CAPSULE PO SCH ×2 (08:21→20:56)
[2019-03-08] MEDS: aspirin 81mg tab.chew PO SCH ×2 (08:21→20:56)
[2019-03-08] MEDS: docusate sod 100mg capsule PO SCH ×2 (08:21→20:56)
[2019-03-08] MEDS: amiodarone 200mg tablet PO SCH (08:21)
[2019-03-08] MEDS: NUT.TX.IMP.RENAL FXN,LAC-REDUC (Nepro) 237 ML VANILLA PO SCH ×4 (08:24→18:00)
[2019-03-08 11:00] VITALS: BP 111/63
[2019-03-08 11:57] LABS: ALANINE AMINOTRANSFERASE 17 U/L (12-78); ALBUMIN 1.9 G/DL (3.4-5.0); ALBUMIN/GLOBULIN RATIO 0.4 (1.1-1.5); ALKALINE PHOSPHATASE 57 IU/L (46-116); ANION GAP 8 (8-16); ASPARTATE AMINO TRANSFERASE 20 U/L (10-37); BILIRUBIN,TOTAL 0.3 MG/DL (0.1-1.0); BLOOD UREA NITROGEN 38 MG/DL (7-18); BUN/CREATININE RATIO 8.3 (5.4-32.0); CALCIUM 7.6 MG/DL (8.5-10.1); CHLORIDE 103 MMOL/L (99-107); CREATININE 4.57 MG/DL (0.60-1.10); GLUCOSE 111 MG/DL (70-104); MAGNESIUM 2.1 MG/DL (1.5-2.4); POTASSIUM 4.4 MMOL/L (3.5-5.1); SODIUM 138 MMOL/L (135-145); TOTAL CARBON DIOXIDE 27.4 MMOL/L (24-32); TOTAL PROTEIN 6.2 G/DL (6.4-8.2); eGFR 12 ML/MIN
--- NOTE | 2019-03-08 14:49 | NUR ---
Reassessment: Pt continues with HD per MD notes. Patient's documented PO intake digressed to 0% intake on 03/06-03/07 with the exception of 50% intake at breakfast on 03/07, however pt documented with 100% intake of starch/soup and protein at breakfast this morning with 100% intake of ONS meeting nutrient needs. LBM 03/07. Will continue to follow closely and make recommendations as appropriate. Recommendations: 1) Continue heart healthy renal diet 2) Nepro TIDWM 3) routine bowel care 4) A1C per w/ hx DM 5) Wt per rx Addendum: 03/08/19 at [address] Amended: Links added.
[2019-03-08 15:15] VITALS: BP 137/70
[2019-03-08] MEDS: acetaminophen 325mg tablet PO PRN (15:38)
--- NOTE | 2019-03-08 16:11 | NUR ---
Problems reprioritized. Patient report given to Chelsea Sandoval RN, questions answered & plan of care reviewed with [].
--- NOTE | 2019-03-08 16:19 | NUR ---
Patient in room PCU 3015. I have received report from Logan BEARD and had the opportunity to ask questions and assume patient care.
[2019-03-08 18:00] VITALS: BP 121/68
--- NOTE | 2019-03-08 18:29 | NUR ---
Problems reprioritized. Patient report given, questions answered & plan of care reviewed with Quita BEARD. Patient stable at transfer of care.
[2019-03-08] MEDS: HYDROcodone/acetaminophen 10/325mg tab PO PRN (20:56)
[2019-03-08 22:00] VITALS: BP 130/76
[2019-03-09] MEDS: acetaminophen 325mg tablet PO PRN ×2 (01:14→09:31)
[2019-03-09 02:30] VITALS: BP 119/69
[2019-03-09 05:44] LABS: BASOPHILS # (AUTO) 0.1 X10'3 (0-0.2); BASOPHILS % (AUTO) 0.7 % (0-1); EOSINOPHILS % (AUTO) 0.5 % (0-6); HEMATOCRIT 25.2 % (42.0-52.0); HEMOGLOBIN 8.8 g/dl (14.0-17.9); LYMPHOCYTES # (AUTO) 1.2 X10'3 (1.1-4.8); LYMPHOCYTES % (AUTO) 13.2 % (21-51); MEAN CORPUSCULAR HEMOGLOBIN 32.2 PG (27.0-31.0); MEAN CORPUSCULAR HGB CONC 35.1 g/dL (33.0-36.5); MEAN CORPUSCULAR VOLUME 91.7 FL (78-98); MEAN PLATELET VOLUME 8.5 FL (7.4-10.4); MONOCYTES % (AUTO) 10.7 % (2-12); NEUTROPHILS # (AUTO) 6.7 X10'3 (1.8-7.7); NEUTROPHILS % (AUTO) 74.9 % (42-75); PLATELET COUNT 268 X10'3 (140-440); RED BLOOD COUNT 2.75 X10'6 (4.70-6.10)
[2019-03-09 05:53] LABS: ALANINE AMINOTRANSFERASE 20 U/L (12-78); ALBUMIN 1.9 G/DL (3.4-5.0); ALBUMIN/GLOBULIN RATIO 0.4 (1.1-1.5); ALKALINE PHOSPHATASE 57 IU/L (46-116); ANION GAP 9 (8-16); ASPARTATE AMINO TRANSFERASE 20 U/L (10-37); BILIRUBIN,TOTAL 0.2 MG/DL (0.1-1.0); BLOOD UREA NITROGEN 49 MG/DL (7-18); BUN/CREATININE RATIO 9.2 (5.4-32.0); CHLORIDE 100 MMOL/L (99-107); CREATININE 5.32 MG/DL (0.60-1.10); GLUCOSE 146 MG/DL (70-104); MAGNESIUM 2.3 MG/DL (1.5-2.4); PHOSPHORUS 5.3 MG/DL (2.3-4.5); POTASSIUM 4.4 MMOL/L (3.5-5.1); SODIUM 137 MMOL/L (135-145); TOTAL CARBON DIOXIDE 27.6 MMOL/L (24-32); TOTAL PROTEIN 6.2 G/DL (6.4-8.2); eGFR 10 ML/MIN
[2019-03-09 06:00] VITALS: BP 114/84
--- NOTE | 2019-03-09 07:09 | NUR ---
Patient in room PCU 3015B. I have received report from CHIRAG Lui and had the opportunity to ask questions and assume patient care.
[2019-03-09] MEDS ORDERED: epoetin 20,000 units/ml inj IV ONE (08:00)
[2019-03-09] MEDS ORDERED: heparin 1,000unit/ml 10ml vial 10 ML IV ONE (08:00)
[2019-03-09] MEDS: K and/or MAG REPLACEMENT MC SCH (08:00)
[2019-03-09] MEDS ORDERED: heparin 1,000 units/ml 10ml inj HE ONE ×2 (08:00)
[2019-03-09] MEDS ORDERED: normal saline 1000ml 250 ML IV PRN (08:00)
[2019-03-09] MEDS: NUT.TX.IMP.RENAL FXN,LAC-REDUC (Nepro) 237 ML VANILLA PO SCH ×3 (08:00→18:00)
[2019-03-09] MEDS: lactobacillus rhamnosus 10,000 MMU CELLS/CAPSULE PO SCH ×2 (09:21→22:01)
[2019-03-09] MEDS: amiodarone 200mg tablet PO SCH (09:22)
[2019-03-09] MEDS: docusate sod 100mg capsule PO SCH ×2 (09:22→22:00)
[2019-03-09] MEDS: aspirin 81mg tab.chew PO SCH ×2 (09:22→22:00)
[2019-03-09] MEDS: DAPTOmycin inj. 750 MG in normal saline 100ml IV soln 100 ML IV SCH (09:24)
[2019-03-09 11:11] VITALS: BP 139/86
[2019-03-09] MEDS ORDERED: normal saline 1000ml 1,000 ML IV SCH (13:42)
[2019-03-09] MEDS ORDERED: fentaNYL/PF 50MCG/1 ML 2ML syringe IV PRN (13:45)
[2019-03-09] MEDS ORDERED: heparin 1,000 units/ml 10ml inj ICATH ONE (13:45)
[2019-03-09] MEDS ORDERED: LIDOcaine 1%/PF 5ML 10 MG/ML VIAL SQ ONE (13:45)
[2019-03-09] MEDS ORDERED: midazolam 2 mg/2 ml injection IV PRN (13:45)
[2019-03-09] MEDS ORDERED: heparin 1,000unit/ml 10ml vial 10 ML ONE (13:49)
[2019-03-09] MEDS ORDERED: LIDOcaine 1%/PF 5ML 10 MG/ML VIAL ONE ×2 (13:49→13:57)
[2019-03-09] MEDS ORDERED: midazolam 2 mg/2 ml injection ONE (13:52)
[2019-03-09] MEDS ORDERED: fentaNYL/PF 50MCG/1 ML 2ML syringe ONE (13:52)
[2019-03-09 15:15] VITALS: BP 126/74
--- NOTE | 2019-03-09 18:27 | NUR ---
Problems reprioritized. Patient report given, questions answered & plan of care reviewed with CHIRAG Hammond and CHIRAG Gomez.
[2019-03-09 18:30] VITALS: BP 127/79
[2019-03-09 22:30] VITALS: BP 128/67
[2019-03-10] VITALS (7 sets, daily range): BP systolic 117–128; BP diastolic 61–70
[2019-03-10 06:10] LABS: BASOPHILS # (AUTO) 0.1 X10'3 (0-0.2); EOSINOPHILS % (AUTO) 0.4 % (0-6); HEMATOCRIT 26.9 % (42.0-52.0); HEMOGLOBIN 9.2 g/dl (14.0-17.9); LYMPHOCYTES # (AUTO) 1.2 X10'3 (1.1-4.8); LYMPHOCYTES % (AUTO) 16.9 % (21-51); MEAN CORPUSCULAR HEMOGLOBIN 32.1 PG (27.0-31.0); MEAN CORPUSCULAR HGB CONC 34.3 g/dL (33.0-36.5); MEAN CORPUSCULAR VOLUME 93.4 FL (78-98); MEAN PLATELET VOLUME 8.3 FL (7.4-10.4); MONOCYTES # (AUTO) 0.8 X10'3 (0-0.9); MONOCYTES % (AUTO) 11.8 % (2-12); NEUTROPHILS # (AUTO) 4.9 X10'3 (1.8-7.7); NEUTROPHILS % (AUTO) 69.9 % (42-75); PLATELET COUNT 262 X10'3 (140-440); RED BLOOD COUNT 2.88 X10'6 (4.70-6.10); WHITE BLOOD COUNT 7.1 X10'3 (4.5-11.0)
--- NOTE | 2019-03-10 06:19 | NUR ---
Patient in room PCU 3017D. I have received report from CHIRAG Hammond and CHIRAG Gomez and had the opportunity to ask questions and assume patient care.
[2019-03-10 06:35] LABS: ALANINE AMINOTRANSFERASE 20 U/L (12-78); ALBUMIN 1.8 G/DL (3.4-5.0); ALBUMIN/GLOBULIN RATIO 0.4 (1.1-1.5); ALKALINE PHOSPHATASE 53 IU/L (46-116); ANION GAP 6 (8-16); ASPARTATE AMINO TRANSFERASE 18 U/L (10-37); BILIRUBIN,TOTAL 0.3 MG/DL (0.1-1.0); BLOOD UREA NITROGEN 28 MG/DL (7-18); BUN/CREATININE RATIO 7.5 (5.4-32.0); CALCIUM 7.9 MG/DL (8.5-10.1); CHLORIDE 102 MMOL/L (99-107); CREATININE 3.73 MG/DL (0.60-1.10); GLUCOSE 96 MG/DL (70-104); MAGNESIUM 2.1 MG/DL (1.5-2.4); PHOSPHORUS 4.1 MG/DL (2.3-4.5); POTASSIUM 4.4 MMOL/L (3.5-5.1); SODIUM 136 MMOL/L (135-145); TOTAL CARBON DIOXIDE 28.5 MMOL/L (24-32); TOTAL PROTEIN 6.2 G/DL (6.4-8.2); eGFR 16 ML/MIN
[2019-03-10] MEDS: K and/or MAG REPLACEMENT MC SCH (08:00)
[2019-03-10] MEDS: amiodarone 200mg tablet PO SCH (08:57)
[2019-03-10] MEDS: lactobacillus rhamnosus 10,000 MMU CELLS/CAPSULE PO SCH ×2 (08:57→21:15)
[2019-03-10] MEDS: aspirin 81mg tab.chew PO SCH ×2 (08:57→21:15)
[2019-03-10] MEDS: docusate sod 100mg capsule PO SCH ×2 (08:57→21:15)
[2019-03-10] MEDS: NUT.TX.IMP.RENAL FXN,LAC-REDUC (Nepro) 237 ML VANILLA PO SCH ×3 (08:58→18:00)
[2019-03-10] MEDS: acetaminophen 325mg tablet PO PRN (12:11)
[2019-03-10 12:17] LABS: ALANINE AMINOTRANSFERASE 21 U/L (12-78); ALBUMIN/GLOBULIN RATIO 0.4 (1.1-1.5); ALKALINE PHOSPHATASE 66 IU/L (46-116); ANION GAP 8 (8-16); ASPARTATE AMINO TRANSFERASE 24 U/L (10-37); BILIRUBIN,TOTAL 0.3 MG/DL (0.1-1.0); BLOOD UREA NITROGEN 33 MG/DL (7-18); CALCIUM 8.3 MG/DL (8.5-10.1); CHLORIDE 101 MMOL/L (99-107); CREATININE 4.14 MG/DL (0.60-1.10); GLUCOSE 146 MG/DL (70-104); MAGNESIUM 2.2 MG/DL (1.5-2.4); POTASSIUM 4.5 MMOL/L (3.5-5.1); SODIUM 136 MMOL/L (135-145); TOTAL CARBON DIOXIDE 26.9 MMOL/L (24-32); TOTAL PROTEIN 6.8 G/DL (6.4-8.2); eGFR 14 ML/MIN
--- NOTE | 2019-03-10 15:04 | NUR ---
PICC ordered, Pt signed PICC consent.
[2019-03-10] MEDS: HYDROcodone/acetaminophen 10/325mg tab PO PRN (16:53)
--- NOTE | 2019-03-10 18:39 | NUR ---
Problems reprioritized. Patient report given, questions answered & plan of care reviewed with CHIRAG Hammond and CHIRAG Gomez.
[2019-03-11] MEDS: HYDROcodone/acetaminophen 10/325mg tab PO PRN ×2 (01:47→08:41)
[2019-03-11 03:00] VITALS: BP 117/62
[2019-03-11 06:00] VITALS: BP 119/62
--- NOTE | 2019-03-11 06:18 | NUR ---
Patient in room PCU 3015. I have received report from Jason BEARD and Stephany BEARD and had the opportunity to ask questions and assume patient care.
[2019-03-11] MEDS ORDERED: heparin 1,000 units/ml 10ml inj HE ONE ×2 (08:00)
[2019-03-11] MEDS ORDERED: heparin 1,000unit/ml 10ml vial 10 ML IV ONE (08:00)
[2019-03-11] MEDS ORDERED: epoetin 20,000 units/ml inj IV ONE (08:00)
[2019-03-11] MEDS: K and/or MAG REPLACEMENT MC SCH (08:00)
[2019-03-11] MEDS ORDERED: normal saline 1000ml 250 ML IV PRN (08:00)
[2019-03-11] MEDS: amiodarone 200mg tablet PO SCH (08:40)
[2019-03-11] MEDS: lactobacillus rhamnosus 10,000 MMU CELLS/CAPSULE PO SCH ×2 (08:41→20:23)
[2019-03-11] MEDS: aspirin 81mg tab.chew PO SCH ×2 (08:41→20:24)
[2019-03-11] MEDS: docusate sod 100mg capsule PO SCH ×2 (08:41→20:24)
[2019-03-11] MEDS: NUT.TX.IMP.RENAL FXN,LAC-REDUC (Nepro) 237 ML VANILLA PO SCH ×3 (08:42→18:06)
[2019-03-11 11:00] VITALS: BP 109/68
--- NOTE | 2019-03-11 11:49 | NUR ---
Reassessment: Pt is stable per MD notes. Documented PO intake more stable with average 50% and 100% intake of Nepro likely meeting nutrient needs with adequate protein to meet the demands of HD. LBM 03/10. Will continue to follow. Recommendations: 1) Continue heart healthy renal diet 2) Nepro TIDWM 3) routine bowel care 4) A1C per MD w/ hx DM 5) Wt per rx Addendum: 03/11/19 at [address] Amended: Links added.
[2019-03-11 15:00] VITALS: BP 90/61
[2019-03-11] MEDS: DAPTOmycin inj. 750 MG in normal saline 100ml IV soln 100 ML IV SCH (15:50)
--- NOTE | 2019-03-11 17:07 | NUR ---
Lab called with + blood cultures from aerobic bottle drawn from left hand on 03/10/19 @ 3195. Gram + coccine in clusters. Dr. Llamas paged with results.
[2019-03-11] MEDS: ondansetron/PF 4mg/2ml inj IV PRN (18:24)
[2019-03-11 19:00] VITALS: BP 115/56
[2019-03-11 22:30] VITALS: BP 96/54
[2019-03-12 02:30] VITALS: BP 114/63
--- NOTE | 2019-03-12 06:36 | NUR ---
Patient in room PCU 3015. I have received report from Stephany BEARD and had the opportunity to ask questions and assume patient care.
[2019-03-12 07:00] VITALS: BP 108/67
[2019-03-12] MEDS: K and/or MAG REPLACEMENT MC SCH (08:00)
[2019-03-12 08:23] LABS: BASOPHILS # (AUTO) 0.1 X10'3 (0-0.2); BASOPHILS % (AUTO) 1.3 % (0-1); EOSINOPHILS # (AUTO) 0.1 X10'3 (0-0.9); EOSINOPHILS % (AUTO) 1.9 % (0-6); HEMATOCRIT 25.8 % (42.0-52.0); HEMOGLOBIN 8.7 g/dl (14.0-17.9); LYMPHOCYTES # (AUTO) 1.3 X10'3 (1.1-4.8); LYMPHOCYTES % (AUTO) 22.7 % (21-51); MEAN CORPUSCULAR HEMOGLOBIN 31.9 PG (27.0-31.0); MEAN CORPUSCULAR HGB CONC 33.8 g/dL (33.0-36.5); MEAN CORPUSCULAR VOLUME 94.3 FL (78-98); MONOCYTES # (AUTO) 0.8 X10'3 (0-0.9); MONOCYTES % (AUTO) 13.8 % (2-12); NEUTROPHILS # (AUTO) 3.6 X10'3 (1.8-7.7); NEUTROPHILS % (AUTO) 60.3 % (42-75); PLATELET COUNT 233 X10'3 (140-440); RED BLOOD COUNT 2.73 X10'6 (4.70-6.10); RED CELL DISTRIBUTION WIDTH 14.2 % (11.5-14.5); WHITE BLOOD COUNT 5.9 X10'3 (4.5-11.0)
[2019-03-12 08:35] LABS: ALANINE AMINOTRANSFERASE 16 U/L (12-78); ALBUMIN 1.8 G/DL (3.4-5.0); ALBUMIN/GLOBULIN RATIO 0.4 (1.1-1.5); ALKALINE PHOSPHATASE 49 IU/L (46-116); ANION GAP 6 (8-16); ASPARTATE AMINO TRANSFERASE 15 U/L (10-37); BILIRUBIN,TOTAL 0.3 MG/DL (0.1-1.0); BLOOD UREA NITROGEN 24 MG/DL (7-18); BUN/CREATININE RATIO 6.9 (5.4-32.0); CALCIUM 8.1 MG/DL (8.5-10.1); CHLORIDE 104 MMOL/L (99-107); CREATININE 3.47 MG/DL (0.60-1.10); GLUCOSE 87 MG/DL (70-104); POTASSIUM 4.6 MMOL/L (3.5-5.1); SODIUM 139 MMOL/L (135-145); TOTAL CARBON DIOXIDE 29.5 MMOL/L (24-32); eGFR 17 ML/MIN
[2019-03-12] MEDS: docusate sod 100mg capsule PO SCH ×2 (08:55→20:48)
[2019-03-12] MEDS: HYDROcodone/acetaminophen 10/325mg tab PO PRN ×2 (08:55→20:46)
[2019-03-12] MEDS: lactobacillus rhamnosus 10,000 MMU CELLS/CAPSULE PO SCH ×2 (08:55→20:48)
[2019-03-12] MEDS: aspirin 81mg tab.chew PO SCH ×2 (08:55→20:47)
[2019-03-12] MEDS: amiodarone 200mg tablet PO SCH (08:55)
[2019-03-12] MEDS: NUT.TX.IMP.RENAL FXN,LAC-REDUC (Nepro) 237 ML VANILLA PO SCH ×3 (08:56→18:00)
[2019-03-12 11:00] VITALS: BP 106/54
[2019-03-12 15:00] VITALS: BP 107/58
[2019-03-12 18:00] VITALS: BP 153/84
--- NOTE | 2019-03-12 18:42 | NUR ---
Problems reprioritized. Patient report given, questions answered & plan of care reviewed with Wendy BEARD. Patient stable at transfer of care.
--- NOTE | 2019-03-12 18:49 | NUR ---
Patient in room PCU 3015. I have received report from Chelsea BEARD and had the opportunity to ask questions and assume patient care. pt resting on bed, using personal phone
[2019-03-12 23:00] VITALS: BP 122/67
[2019-03-13 03:00] VITALS: BP 136/69
--- NOTE | 2019-03-13 06:15 | NUR ---
Patient in room PCU 3015. I have received report from Wendy BEARD and had the opportunity to ask questions and assume patient care.
--- NOTE | 2019-03-13 06:17 | NUR ---
Problems reprioritized. Patient report given, questions answered & plan of care reviewed with Keny BEARD.
[2019-03-13 07:00] VITALS: BP 131/68
[2019-03-13] MEDS: K and/or MAG REPLACEMENT MC SCH (08:00)
[2019-03-13] MEDS: DAPTOmycin inj. 750 MG in normal saline 100ml IV soln 100 ML IV SCH (08:01)
[2019-03-13] MEDS: lactobacillus rhamnosus 10,000 MMU CELLS/CAPSULE PO SCH ×2 (08:02→20:24)
[2019-03-13] MEDS: docusate sod 100mg capsule PO SCH ×2 (08:02→20:25)
[2019-03-13] MEDS: amiodarone 200mg tablet PO SCH (08:02)
[2019-03-13] MEDS: aspirin 81mg tab.chew PO SCH ×2 (08:02→20:25)
[2019-03-13] MEDS: NUT.TX.IMP.RENAL FXN,LAC-REDUC (Nepro) 237 ML VANILLA PO SCH ×3 (08:03→18:20)
[2019-03-13] MEDS: acetaminophen 325mg tablet PO PRN ×2 (08:16→20:27)
[2019-03-13] MEDS: linezolid 600mg tablet PO SCH ×2 (10:17→20:24)
[2019-03-13 11:00] VITALS: BP 132/85
--- NOTE | 2019-03-13 12:40 | NUR ---
received pt report from Keny BEARD.
--- NOTE | 2019-03-13 12:45 | NUR ---
assisted pt up to chair for meal. placed optifoam on open area on coccyx and on reddened area on rt buttocks.
--- NOTE | 2019-03-13 14:40 | NUR ---
pt resting in bed. pt report given to Darling BEARD.
--- NOTE | 2019-03-13 14:45 | NUR ---
Patient in room PCU 3015. I have received report from CHIRAG [place] and had the opportunity to ask questions and assume patient care.
[2019-03-13 15:00] VITALS: BP 135/61
[2019-03-13 18:00] VITALS: BP 112/52
--- NOTE | 2019-03-13 18:20 | NUR ---
Received report from CHIRAG [place]. Patient is awake and alert on 2L NC, in no apparent distress. Having meal. Call light and items of frequent use within reach. Will continue to monitor.
--- NOTE | 2019-03-13 18:43 | NUR ---
Problems reprioritized. Patient report given, questions answered & plan of care reviewed with CHIRAG Thomas.
[2019-03-13 22:00] VITALS: BP 114/59
[2019-03-14 02:00] VITALS: BP 124/70
[2019-03-14 06:00] VITALS: BP 129/76
--- NOTE | 2019-03-14 06:13 | NUR ---
Problems reprioritized. Patient report given, questions answered & plan of care reviewed with CHIRAG Gudino.
--- NOTE | 2019-03-14 06:30 | NUR ---
Patient in room PCU 3015. I have received report from CHIRAG Thomas and had the opportunity to ask questions and assume patient care.
[2019-03-14 06:41] LABS: ALANINE AMINOTRANSFERASE 14 U/L (12-78); ALBUMIN 1.8 G/DL (3.4-5.0); ALBUMIN/GLOBULIN RATIO 0.4 (1.1-1.5); ALKALINE PHOSPHATASE 46 IU/L (46-116); ANION GAP 8 (8-16); ASPARTATE AMINO TRANSFERASE 13 U/L (10-37); BILIRUBIN,TOTAL 0.3 MG/DL (0.1-1.0); BLOOD UREA NITROGEN 50 MG/DL (7-18); BUN/CREATININE RATIO 10.1 (5.4-32.0); CALCIUM 8.2 MG/DL (8.5-10.1); CHLORIDE 103 MMOL/L (99-107); CREATININE 4.93 MG/DL (0.60-1.10); GLUCOSE 96 MG/DL (70-104); MAGNESIUM 2.2 MG/DL (1.5-2.4); POTASSIUM 4.6 MMOL/L (3.5-5.1); SODIUM 139 MMOL/L (135-145); TOTAL CARBON DIOXIDE 28.4 MMOL/L (24-32); TOTAL PROTEIN 6.2 G/DL (6.4-8.2); eGFR 11 ML/MIN
[2019-03-14] MEDS: docusate sod 100mg capsule PO SCH (07:55)
[2019-03-14] MEDS: HYDROcodone/acetaminophen 10/325mg tab PO PRN (07:55)
[2019-03-14] MEDS: amiodarone 200mg tablet PO SCH (07:55)
[2019-03-14] MEDS: aspirin 81mg tab.chew PO SCH (07:56)
[2019-03-14] MEDS: NUT.TX.IMP.RENAL FXN,LAC-REDUC (Nepro) 237 ML VANILLA PO SCH ×2 (07:56→15:19)
[2019-03-14] MEDS: lactobacillus rhamnosus 10,000 MMU CELLS/CAPSULE PO SCH (07:56)
[2019-03-14] MEDS: K and/or MAG REPLACEMENT MC SCH (08:00)
[2019-03-14 08:25] LABS: BASOPHILS # (AUTO) 0.1 X10'3 (0-0.2); BASOPHILS % (AUTO) 0.9 % (0-1); EOSINOPHILS # (AUTO) 0.2 X10'3 (0-0.9); EOSINOPHILS % (AUTO) 2.1 % (0-6); HEMATOCRIT 26.8 % (42.0-52.0); HEMOGLOBIN 8.9 g/dl (14.0-17.9); LYMPHOCYTES # (AUTO) 1.3 X10'3 (1.1-4.8); LYMPHOCYTES % (AUTO) 18.5 % (21-51); MEAN CORPUSCULAR HGB CONC 33.1 g/dL (33.0-36.5); MEAN CORPUSCULAR VOLUME 93.6 FL (78-98); MEAN PLATELET VOLUME 8.3 FL (7.4-10.4); MONOCYTES % (AUTO) 13.7 % (2-12); NEUTROPHILS # (AUTO) 4.6 X10'3 (1.8-7.7); NEUTROPHILS % (AUTO) 64.8 % (42-75); PLATELET COUNT 237 X10'3 (140-440); RED BLOOD COUNT 2.87 X10'6 (4.70-6.10); RED CELL DISTRIBUTION WIDTH 14.4 % (11.5-14.5); WHITE BLOOD COUNT 7.1 X10'3 (4.5-11.0)
[2019-03-14 08:53] LABS: ALANINE AMINOTRANSFERASE 16 U/L (12-78); ALBUMIN 1.9 G/DL (3.4-5.0); ALBUMIN/GLOBULIN RATIO 0.4 (1.1-1.5); ALKALINE PHOSPHATASE 52 IU/L (46-116); ANION GAP 6 (8-16); ASPARTATE AMINO TRANSFERASE 16 U/L (10-37); BILIRUBIN,TOTAL 0.3 MG/DL (0.1-1.0); BLOOD UREA NITROGEN 49 MG/DL (7-18); BUN/CREATININE RATIO 9.8 (5.4-32.0); CALCIUM 8.4 MG/DL (8.5-10.1); CHLORIDE 103 MMOL/L (99-107); CREATININE 4.99 MG/DL (0.60-1.10); GLUCOSE 105 MG/DL (70-104); POTASSIUM 4.6 MMOL/L (3.5-5.1); SODIUM 139 MMOL/L (135-145); TOTAL CARBON DIOXIDE 29.6 MMOL/L (24-32); TOTAL PROTEIN 6.5 G/DL (6.4-8.2); eGFR 11 ML/MIN
[2019-03-14] MEDS ORDERED: normal saline 1000ml 250 ML IV PRN (09:03)
[2019-03-14] MEDS ORDERED: heparin 1,000unit/ml 10ml vial 10 ML IV ONE (09:03)
[2019-03-14] MEDS ORDERED: epoetin 20,000 units/ml inj IV ONE (09:05)
[2019-03-14] MEDS ORDERED: heparin 1,000 units/ml 10ml inj HE ONE ×2 (09:10)
[2019-03-14] MEDS: linezolid 600mg tablet PO SCH (09:47)
[2019-03-14 11:00] VITALS: BP 124/72
--- NOTE | 2019-03-14 14:43 | NUR ---
zyvox consult: Pt unable to wake during RD visit. Written zyvox diet ed w/ RD contact information left at bedside. Pt PO 100% meals w/ Nepro TID meeting needs. LBM 03/12 on colace. Will continue to monitor. Recommendations: 1) Continue heart healthy renal diet 2) Nepro TIDWM 3) routine bowel care 4) A1C per MD w/ hx DM 5) Wt per rx Addendum: 03/14/19 at [address] Amended: Links added.
== END 2019-03-14 18:15 | DRG 260 ==
LOC: ER 10:12 → ED HOLD 15:35 → PCU 3S 17:11
PROVIDERS: ADMIT Family Medicine; ATTEND Family Medicine
PROC: 0JPT0PZ Removal of Cardiac Rhythm Related Device from Trunk Subcutaneous Tissue and Fascia, Open Approach (ICD-10-PCS; principal; 2019-02-27)
PROC: 02PA3MZ Removal of Cardiac Lead from Heart, Percutaneous Approach (ICD-10-PCS; 2019-02-27)
PROC: 5A1D70Z Performance of Urinary Filtration, Intermittent, Less than 6 Hours Per Day (ICD-10-PCS; 2019-03-03)
PROC: 02HV33Z Insertion of Infusion Device into Superior Vena Cava, Percutaneous Approach (ICD-10-PCS; 2019-03-03)
PROC: B5181ZA Fluoroscopy of Superior Vena Cava using Low Osmolar Contrast, Guidance (ICD-10-PCS; 2019-03-03)
PROC: B543ZZA Ultrasonography of Right Jugular Veins, Guidance (ICD-10-PCS; 2019-03-03)
PROC: 5A1D70Z Performance of Urinary Filtration, Intermittent, Less than 6 Hours Per Day (ICD-10-PCS; 2019-03-04)
PROC: 5A1D70Z Performance of Urinary Filtration, Intermittent, Less than 6 Hours Per Day (ICD-10-PCS; 2019-03-07)
PROC: 02H633Z Insertion of Infusion Device into Right Atrium, Percutaneous Approach (ICD-10-PCS; 2019-03-09)
PROC: 0JHD3XZ Insertion of Tunneled Vascular Access Device into Right Upper Arm Subcutaneous Tissue and Fascia, Percutaneous Approach (ICD-10-PCS; 2019-03-09)
PROC: B543ZZA Ultrasonography of Right Jugular Veins, Guidance (ICD-10-PCS; 2019-03-09)
PROC: 5A1D70Z Performance of Urinary Filtration, Intermittent, Less than 6 Hours Per Day (ICD-10-PCS; 2019-03-09)
PROC: 5A1D70Z Performance of Urinary Filtration, Intermittent, Less than 6 Hours Per Day (ICD-10-PCS; 2019-03-11)
PROC: 5A1D70Z Performance of Urinary Filtration, Intermittent, Less than 6 Hours Per Day (ICD-10-PCS; 2019-03-14)
DX: T82.7XXA Infection and inflammatory reaction due to other cardiac and vascular devices, implants and grafts, initial encounter (principal); A41.02 Sepsis due to Methicillin resistant Staphylococcus aureus; G93.41 Metabolic encephalopathy; J96.91 Respiratory failure, unspecified with hypoxia; E43 Unspecified severe protein-calorie malnutrition; I21.4 Non-ST elevation (NSTEMI) myocardial infarction; N18.6 End stage renal disease; I50.22 Chronic systolic (congestive) heart failure; I13.2 Hypertensive heart and chronic kidney disease with heart failure and with stage 5 chronic kidney disease, or end stage renal disease; I31.3 Pericardial effusion (noninflammatory); I42.0 Dilated cardiomyopathy; N17.9 Acute kidney failure, unspecified; I49.5 Sick sinus syndrome; S30.1XXA Contusion of abdominal wall, initial encounter; D63.8 Anemia in other chronic diseases classified elsewhere; E78.5 Hyperlipidemia, unspecified; E83.42 Hypomagnesemia; H91.93 Unspecified hearing loss, bilateral; I25.10 Atherosclerotic heart disease of native coronary artery without angina pectoris; I44.7 Left bundle-branch block, unspecified; I48.0 Paroxysmal atrial fibrillation; N26.1 Atrophy of kidney (terminal); Y83.1 Surgical operation with implant of artificial internal device as the cause of abnormal reaction of the patient, or of later complication, without mention of misadventure at the time of the procedure; I25.2 Old myocardial infarction; Z95.810 Presence of automatic (implantable) cardiac defibrillator; Z99.2 Dependence on renal dialysis; Z79.899 Other long term (current) drug therapy; Z85.46 Personal history of malignant neoplasm of prostate; Z87.891 Personal history of nicotine dependence; Z68.29 Body mass index [BMI] 29.0-29.9, adult
CPT/HCPCS: 33234; 33244; 36415; 36556; 36558; 36569; 36600; 71045; 71250; 72146; 74176; 76937; 77001; 80053; 80202; 81001; 82550; 82570; 82595; 82803; 83605; 83735; 83880; 84100; 84145; 84156; 84300; 84484; 85018; 85025; 85610; 85730; 86160; 86430; 86706; 87040; 87070; 87077; 87186; 87207; 87340; 92508; 92616; 93005; 93306; 93312; 94668; 96365; 97110; 97116; 97164; 97530; 99152; 99153; 99285; A4620; A9270; C1750; C1751; C1894; G0257; G0378; J0282; J0690; J0692; J0696; J0878; J0885; J1250; J1644; J1940; J1956; J2001; J2250; J2270; J2405; J3010; J3370; J3475; J3490; J7030